=== PATIENT | male | born 1965 | race Hispanic/Latino ===

== ENCOUNTER 2018-03-12 12:46 | Inpatient (IN) | payer OTHER ==
[2018-03-12] MEDS ORDERED: FENTANYL CITR 100 MCG/2 ML ONE (15:15)
[2018-03-12 15:21] LABS: Absolute Lymphocytes (CBC) 0.9 K/uL (0.7-4.9); Absolute Monocytes 0.8 K/uL (0.1-1.3); Basophils % 0.8 % (0-1.3); Eosinophils % 0.3 % (0-4.4); Hematocrit 41.1 % (39.6-49.0); Lymphocytes % 10.3 % (15.3-44.8); MCH 27.9 pg (27.0-35.0); MCV 81.4 fL (80-100); MPV 8.6 fL (7.6-11.3); Monocytes % 9.6 % (3.3-12.3); RBC Red Blood Cell Count 5.05 M/uL (4.33-5.43)
[2018-03-12 15:41] LABS: ALT/SGPT 95 U/L (12-78); AST/SGOT 99 U/L (15-37); Albumin 3.1 g/dL (3.4-5.0); Alkaline Phosphatase 235 U/L (45-117); BUN Blood Urea Nitrogen 14 mg/dL (7-18); Bicarbonate 29 mmol/L (21-32); Bilirubin Direct 0.8 mg/dL (0-0.2); Bilirubin Total 1.3 mg/dL (0.2-1.0); Glucose Level 97 mg/dL (74-106); Lipase 2962 U/L (73-393); Protein, Total 8.7 g/dL (6.4-8.2); Sodium Level 131 mmol/L (136-145)
--- NOTE | 2018-03-12 15:50 | RAD REPORT ---
EXAM DESCRIPTION: CT - Stone Protocol - 03/12/2018 3:19 pm CLINICAL HISTORY: Abdominal pain. COMPARISON: March 01, 2018 TECHNIQUE: Computed axial tomography of the abdomen pelvis was obtained without oral or IV contrast. Lack of IV and oral contrast limits evaluation of solid organs, bowel, and vessels. Coronal reformat reza images were obtained and reviewed. All CT scans are performed using dose optimization technique as appropriate and may include automated exposure control or mA/KV adjustment according to patient size. FINDINGS: A renal calculus is not seen. An ureteral calculus is not noted. A bladder calculus is not present. Pancreatic and hepatic masses are unchanged. Lymphadenopathy is stable There is no evidence of diverticulitis. The appendix appears normal Small amount of ascites is present The wall of the proximal rectum appears thickened IMPRESSION: Negative for a genitourinary calculus No change in pancreatic and hepatic masses. Stable lymphadenopathy Wall of the proximal rectum appears thickened which may represent neoplasm or incomplete distention
--- NOTE | 2018-03-12 16:37 | ER ---
Nurse's Notes [facility] Name: Reji Pina Age: 52 yrs Sex: Male : 1965 Arrival Date: 03/12/2018 Time: 12:47 Bed 19 Private MD: John Raygoza E Diagnosis: Acute pancreatitis Presentation: 03/12 12:49 Presenting complaint: Patient states: Upper abdominal pain for 2 months with decreased aj appetite. Patient has been seen by GI and PCP for this issue. Reports tramadol is not controlling pain. Was DX with liver mass in [facility] ER recently but has not followed up. Transition of care: patient was not received from another setting of care. Onset of symptoms was December 2017. Risk Assessment: Do you want to hurt yourself or someone else? Patient reports no desire to harm self or others. Initial Sepsis Screen: Does the patient meet any 2 criteria? No. Patient's initial sepsis screen is negative. Does the patient have a suspected source of infection? No. Patient's initial sepsis screen is negative. Care prior to arrival: None. 12:49 Method Of Arrival: Wheelchair aj 12:49 Acuity: TY 3 aj Triage Assessment: 12:53 General: Appears in no apparent distress. comfortable, Behavior is calm, cooperative, aj appropriate for age. Pain: Complains of pain in right upper quadrant. Neuro: Level of Consciousness is awake, alert, obeys commands, Oriented to person, place, time, situation, Appropriate for age. Respiratory: Airway is patent Respiratory effort is even, unlabored, Respiratory pattern is regular, symmetrical. GI: Abdomen is flat, Reports upper abdominal pain. Derm: Skin is intact, is healthy with good turgor, Skin is pink, warm \T\ dry. normal. Historical: - Allergies: 12:53 NKDA; aj - Home Meds: 12:53 Tramadol Oral [Active]; Protonix Oral [Active]; Lactulose Oral [Active]; aj - PMHx: 12:53 Liver mass; aj - PSHx: 12:53 left hand surgery; aj - Immunization history:: Adult Immunizations up to date. - Social history:: Smoking status: Patient/guardian denies using tobacco, Patient uses alcohol, claims drinking about a 6 pack/day. street drugs, cocaine. - Ebola Screening: : Patient negative for fever greater than or equal to 101.5 degrees Fahrenheit, and additional compatible Ebola Virus Disease symptoms Patient denies exposure to infectious person Patient denies travel to an Ebola-affected area in the 21 days before illness onset No symptoms or risks identified at this time. Screenin:39 Abuse screen: Denies threats or abuse. Denies injuries from another. Nutritional bp screening: No deficits noted. Tuberculosis screening: No symptoms or risk factors identified. Fall Risk None identified. Assessment: 14:35 General: Appears in no apparent distress. comfortable, Behavior is cooperative, bp appropriate for age, anxious. Pain: Complains of pain in right upper quadrant. Neuro: Level of Consciousness is awake, alert, obeys commands, Oriented to person, place, time, situation, Appropriate for age. Cardiovascular: No deficits noted. Respiratory: Airway is patent Respiratory effort is even, unlabored, Respiratory pattern is regular, symmetrical. GI: Bowel sounds present X 4 quads. Abd is soft X 4 quads. : No signs and/or symptoms were reported regarding the genitourinary system. EENT: No deficits noted. Derm: No deficits noted. Musculoskeletal: Circulation, motion, and sensation intact. Range of motion: intact in all extremities. 15:12 Reassessment: PT TO CT WITH AS400 OPERATOR. bp 16:04 Reassessment: ALL CURRENT ORDERS COMPLETED, RE-EVAL PENDING. bp 17:00 Reassessment: U/S AT B/S, ADMIT IN PROCESS. bp Vital Signs: 12:53 BP 128 / 97; Pulse 109; Resp 20; Temp 98.1; Pulse Ox 98% on R/A; Weight 54.43 kg; aj Height 5 ft. 3 in. (160.02 cm); 14:39 BP 142 / 106; Pulse 100; Resp 16; Pulse Ox 100% ; bp 15:55 BP 151 / 115; Pulse 95; Resp 16; Pulse Ox 100% ; bp 16:03 BP 145 / 110; Pulse 95; Resp 16; Pulse Ox 100% ; bp 17:00 BP 146 / 102; Pulse 99; Resp 16; Pulse Ox 100% ; bp 12:53 Body Mass Index 21.26 (54.43 kg, 160.02 cm) aj ED Course: 12:47 Patient arrived in ED. mr 12:47 John Raygoza MD is Private Physician. mr 12:51 Triage completed. aj 12:53 Arm band placed on left wrist. Patient placed in waiting room, Patient notified of wait aj time. 14:33 Isaac Das, RN is Primary Nurse. bp 14:33 Brenden Hawk MD is Attending Physician. gs 14:39 Patient has correct armband on for positive identification. Placed in gown. Bed in low bp position. Call light in reach. Side rails up X2. 15:12 Inserted saline lock: 22 gauge in left forearm, using aseptic technique. Blood bp collected. 15:12 Initial lab(s) drawn, by me, sent to lab. Inserted saline lock: 22 gauge in left mh5 forearm, using aseptic technique. Blood collected. 15:13 Lipase Sent. 5 15:13 Hepatic Function Sent. 5 15:13 CBC with Diff Sent. 5 15:13 Basic Metabolic Panel Sent. 5 15:19 CT Stone Protocol In Process Unspecified. EDMS 15:19 CT completed. Patient tolerated procedure well. Patient moved back from CT. bq 16:34 Ross Kirkland MD is Hospitalizing Provider. gs 17:27 Ultrasound completed. Patient tolerated well. sg3 17:27 US Abdomen Limited In Process Unspecified. EDMS 17:38 No provider procedures requiring assistance completed. Patient admitted, IV remains in bp place. Administered Medications: 15:12 Drug: fentaNYL (PF) 50 mcg Route: IVP; Site: left forearm; bp 16:24 Follow up: Response: Pain is decreased bp Outcome: 16:36 Decision to Hospitalize by Provider. gs 17:37 Admitted to Med/surg accompanied by tech, via stretcher, room 221, with chart, Report bp called to ALEXIA ALCARAZ 17:37 Condition: stable 17:37 Instructed on the need for admit. 17:41 Patient left the ED. bp Signatures: Dispatcher [employer] EDMS Teresita Head RN RN aj Rivera, Mary Cammie White Kamini Bonner 5 Brenden Hawk MD MD Isaac Das, KIERAN RN Rupal Macias sg3 Corrections: (The following items were deleted from the chart) 12:57 12:49 Presenting complaint: Patient states: Upper abdominal pain for 2 months with aj decreased appetite. Patient has been seen by GI and PCP for this issue. Reports tramadol is not controlling pain aj 17:22 17:21 BP 146 / 102; Pulse 99bpm; Resp 16bpm; Pulse Ox 100%; bp bp
--- NOTE | 2018-03-12 16:37 | EDPHYS ---
Physician Documentation [facility] Name: Reji Pina Age: 52 yrs Sex: Male : 1965 Arrival Date: 03/12/2018 Time: 12:47 Bed 19 Private MD: John Raygoza E ED Physician Brenden Hwak HPI: 03/12 16:32 This 52 yrs old Male presents to ER via Wheelchair with complaints of gs Abdominal Pain. 16:32 The patient presents with abdominal pain that is diffuse. Onset: The symptoms/episode gs began/occurred 5 day(s) ago. The symptoms do not radiate. Associated signs and symptoms: Pertinent positives: nausea and vomiting. The symptoms are described as crampy, sharp. Modifying factors: The symptoms are alleviated by nothing, the symptoms are aggravated by food. Severity of pain: At its worst the pain was severe in the emergency department the pain is unchanged. The patient has experienced similar episodes in the past, a few times. Historical: - Allergies: 12:53 NKDA; aj - Home Meds: 12:53 Tramadol Oral [Active]; Protonix Oral [Active]; Lactulose Oral [Active]; aj - PMHx: 12:53 Liver mass; aj - PSHx: 12:53 left hand surgery; aj - Immunization history:: Adult Immunizations up to date. - Social history:: Smoking status: Patient/guardian denies using tobacco, Patient uses alcohol, claims drinking about a 6 pack/day. street drugs, cocaine. - Ebola Screening: : Patient negative for fever greater than or equal to 101.5 degrees Fahrenheit, and additional compatible Ebola Virus Disease symptoms Patient denies exposure to infectious person Patient denies travel to an Ebola-affected area in the 21 days before illness onset No symptoms or risks identified at this time. ROS: 16:32 All other systems are negative. gs Exam: 16:32 Head/Face: Normocephalic, atraumatic. Eyes: Pupils equal round and reactive to light, gs extra-ocular motions intact. Lids and lashes normal. Conjunctiva and sclera are non-icteric and not injected. Cornea within normal limits. Periorbital areas with no swelling, redness, or edema. ENT: Nares patent. No nasal discharge, no septal abnormalities noted. Tympanic membranes are normal and external auditory canals are clear. Oropharynx with no redness, swelling, or masses, exudates, or evidence of obstruction, uvula midline. Mucous membranes moist. Neck: Trachea midline, no thyromegaly or masses palpated, and no cervical lymphadenopathy. Supple, full range of motion without nuchal rigidity, or vertebral point tenderness. No Meningismus. Chest/axilla: Normal chest wall appearance and motion. Nontender with no deformity. No lesions are appreciated. Cardiovascular: Regular rate and rhythm with a normal S1 and S2. No gallops, murmurs, or rubs. Normal PMI, no JVD. No pulse deficits. Respiratory: Lungs have equal breath sounds bilaterally, clear to auscultation and percussion. No rales, rhonchi or wheezes noted. No increased work of breathing, no retractions or nasal flaring. Back: No spinal tenderness. No costovertebral tenderness. Full range of motion. Skin: Warm, dry with normal turgor. Normal color with no rashes, no lesions, and no evidence of cellulitis. MS/ Extremity: Pulses equal, no cyanosis. Neurovascular intact. Full, normal range of motion. Neuro: Awake and alert, GCS 15, oriented to person, place, time, and situation. Cranial nerves II-XII grossly intact. Motor strength 5/5 in all extremities. Sensory grossly intact. Cerebellar exam normal. Normal gait. 16:32 Constitutional: The patient appears alert, awake. 16:32 Constitutional: The patient appears uncomfortable. 16:32 Abdomen/GI: Palpation: moderate abdominal tenderness, in all quadrants, rebound tenderness, is not appreciated. Vital Signs: 12:53 BP 128 / 97; Pulse 109; Resp 20; Temp 98.1; Pulse Ox 98% on R/A; Weight 54.43 kg; aj Height 5 ft. 3 in. (160.02 cm); 14:39 BP 142 / 106; Pulse 100; Resp 16; Pulse Ox 100% ; bp 15:55 BP 151 / 115; Pulse 95; Resp 16; Pulse Ox 100% ; bp 16:03 BP 145 / 110; Pulse 95; Resp 16; Pulse Ox 100% ; bp 17:00 BP 146 / 102; Pulse 99; Resp 16; Pulse Ox 100% ; bp 12:53 Body Mass Index 21.26 (54.43 kg, 160.02 cm) aj MDM: 14:52 Patient medically screened. gs 16:32 Differential diagnosis: bowel obstruction, gastroesophageal reflux disease, gs non-specific abd pain, pancreatitis. Data reviewed: vital signs, nurses notes, lab test result(s), radiologic studies. Response to treatment: the patient's symptoms have markedly improved after treatment, and as a result, I will admit patient. 03/12 14:55 Order name: Basic Metabolic Panel; Complete Time: 16:00 03/12 14:55 Order name: CBC with Diff; Complete Time: 16:00 03/12 14:55 Order name: Hepatic Function; Complete Time: 16:00 03/12 14:55 Order name: Lipase; Complete Time: 16:00 03/12 16:11 Order name: Basic Metabolic Panel [facility] 03/12 16:11 Order name: Basic Metabolic Panel [facility] 03/12 14:55 Order name: CT Stone Protocol; Complete Time: 16:00 03/12 16:06 Order name: US Abdomen Limited; Complete Time: 18:02 03/12 16:11 Order name: CBC with Automated Diff [facility] 03/12 16:11 Order name: CBC with Automated Diff [facility] 03/12 16:11 Order name: Lipase [facility] 03/12 16:11 Order name: Lipase [facility] 03/12 16:11 Order name: Liver (Hepatic) Function [facility] 03/12 16:11 Order name: Liver (Hepatic) Function [facility] 03/12 14:55 Order name: IV Saline Lock; Complete Time: 15:11 03/12 14:55 Order name: Labs collected and sent; Complete Time: 15:11 03/12 16:11 Order name: CONS Pharmacy Consult [facility] 03/12 16:11 Order name: NPO [facility] Administered Medications: 15:12 Drug: fentaNYL (PF) 50 mcg Route: IVP; Site: left forearm; bp 16:24 Follow up: Response: Pain is decreased bp Disposition: 03/12/18 16:36 Hospitalization ordered by Ross Kirkland for Inpatient Admission. Preliminary diagnosis is Acute pancreatitis. - Bed requested for Telemetry/MedSurg (Inpatient). - Status is Inpatient Admission. bp - Condition is Stable. - Problem is an acute exacerbation. - Symptoms have improved. UTI on Admission? No Signatures: Dispatcher [employer] EDVA Teresita Head RN Brenden Cho MD MD gs Peltier, Brian, RN RN bp Botello, Elizabeth eb Corrections: (The following items were deleted from the chart) 17:13 16:36 Hospitalization Ordered by Ross Kirkland MD for Inpatient Admission. eb Preliminary diagnosis is Acute pancreatitis. Bed requested for Telemetry/MedSurg (Inpatient). Status is Inpatient Admission. Condition is Stable. Problem is an acute exacerbation. Symptoms have improved. UTI on Admission? No. 17:41 17:13 03/12/2018 16:36 Hospitalization Ordered by Ross Kirkland MD for Inpatient bp Admission. Preliminary diagnosis is Acute pancreatitis. Bed requested for Telemetry/MedSurg (Inpatient). Status is Inpatient Admission. Condition is Stable. Problem is an acute exacerbation. Symptoms have improved. UTI on Admission? No. eb
--- NOTE | 2018-03-12 17:54 | RAD REPORT ---
EXAM DESCRIPTION: US - Abdomen Exam Limited - 03/12/2018 5:28 pm CLINICAL HISTORY: Abdominal pain. COMPARISON: CT March 12, 2018 FINDINGS: A gallstone is not seen. Gallbladder wall is not thickened. The biliary tree is normal caliber. IMPRESSION: Unremarkable gallbladder ultrasound.
[2018-03-12] MEDS: D5 0.45 NS 1,000 ML IV SCH (18:16)
[2018-03-12] MEDS: MORPHINE 4 MG/ML SYR IV PRN ×2 (18:45→22:42)
[2018-03-12] MEDS: ENOXAPARIN 40 MG/0.4 ML SQ SCH (18:46)
[2018-03-12] MEDS ORDERED: INFLUENZA VACCINE (for 3y+) 0.5 ML DOSE IMVAC ONE (19:00)
[2018-03-12 19:28] VITALS: BMI 26.9
[2018-03-13] MEDS: MORPHINE 4 MG/ML SYR IV PRN ×5 (03:19→22:00)
[2018-03-13] MEDS: D5 0.45 NS 1,000 ML IV SCH (03:30)
[2018-03-13] MEDS ORDERED: PROMETHAZINE 25 MG TABLET PO PRN (04:39)
--- NOTE | 2018-03-13 04:40 | P.HP ---
Certification for Inpatient Patient admitted to: Inpatient With expected LOS: >2 Midnights Patient will require the following post-hospital care: None Practitioner: I am a practitioner with admitting privileges, knowledge of patient current condition, hospital course, and medical plan of care. Services: Services provided to patient in accordance with Admission requirements found in Title 42 Section 412.3 of the Code of Federal Regulations Patient History Date of Service: 03/12/18 Reason for admission: Acute pancreatitis History of Present Illness: Patient is a 52-year-old gentleman who is cachectic and disheveled who presents to the hospital with confusion. Patient was found have acute pancreatitis. He has no history of gallstones. He also does not have any prior history of cardiac disease. Patient has been told he has pancreatitis and he stoppeed drinking in May. However, patient admits to having frequent flare-ups for his acute on chronic pancreatitis. Patient be admitted to the hospital for further treatment at this time. Allergies No Known Drug All Allergy (Uncoded 11/19/16 21:41) Unknown Home Medications: Amoxicillin 2 cap PO BID 03/12/18 Clarithromycin [Biaxin] 500 mg PO BID 03/12/18 Ferrous Sulfate 324 mg PO DAILY 03/12/18 Lactulose 15 ml PO BID 03/12/18 Lansoprazole 30 mg PO BID 03/12/18 Promethazine HCl 25 mg PO Q6H PRN 03/12/18 Tramadol HCl [Ultram] 50 mg PO BID 03/12/18 - Past Medical/Surgical History Has patient received pneumonia vaccine in the past: No Diabetic: No -: Pancreatitis Past Surgical History: Patient denies surgical history - Family History Mother Medical History: Diabetes Father Medical History: Heart disease, Diabetes - Social History Smoking Status: Former smoker Alcohol use: Yes CD- Drugs: Yes Caffeine use: Yes Place of Residence: Home Review of Systems 10-point ROS is otherwise unremarkable Physical Examination - Vital Signs Temperature: 97.2 F Blood Pressure: 136/87 Pulse: 88 Respirations: 16 Pulse Ox (%): 99 - Physical Exam General: Alert, In no apparent distress, Oriented x3 HEENT: Atraumatic, PERRLA, Mucous membr. moist/pink, EOMI, Sclerae nonicteric Neck: Supple, 2+ carotid pulse no bruit, No LAD, Without JVD or thyroid abnormality Respiratory: Clear to auscultation bilaterally, Normal air movement Cardiovascular: Regular rate/rhythm, Normal S1 S2, No murmurs Gastrointestinal: Normal bowel sounds, Soft and benign, No ascites, No rebound, No guarding, Distended, Tenderness Musculoskeletal: No clubbing, No swelling, No tenderness Integumentary: No rashes Neurological: Normal gait, Normal speech, Normal strength at 5/5 x4 extr, Normal tone, Sensation intact, Cranial nerves 3-12 intact, Normal affect Lymphatics: No axilla or inguinal lymphadenopathy - Studies Laboratory Data (last 24 hrs) 03/12/18 13:05: WBC 8.8, Hgb 14.1, Hct 41.1, Plt Count 442 H 03/12/18 13:05: Sodium 131 L, Potassium 4.0, BUN 14, Creatinine 0.80, Glucose 97 , Total Bilirubin 1.3 H, AST 99 H, ALT 95 H, Alkaline Phosphatase 235 H, Lipase 2962 H Assessment & Plan - Problems (Diagnosis) (1) Acute on chronic pancreatitis Current Visit: Yes Status: Acute (2) History of alcohol abuse Current Visit: Yes Status: Acute (3) Generalized weakness Current Visit: Yes Status: Acute - Plan Plan: 1. Aggressive IV hydration 2. Pain control 3. NPO 4. Continue with IV pain medication 5. Start clear liquids in the morning 6. Advanced diet as tolerated 7. GI and DVT prophylaxis Discharge Plan: Home Plan to discharge in: Greater than 2 days - Advance Directives Does patient have a Living Will: No Does patient have a Durable POA for Healthcare: No - Code Status/Comfort Care Code Status Assessed: Yes Code Status: Full Code Critical Care: No Time Spent Managing PTS Care (In Minutes): 50
[2018-03-13] MEDS ORDERED: D5 0.45 NS 1,000 ML IV SCH (05:00)
[2018-03-13 06:30] LABS: Absolute Lymphocytes (CBC) 0.8 K/uL (0.7-4.9); Absolute Monocytes 0.9 K/uL (0.1-1.3); Absolute Neutrophil 6.6 K/uL (1.8-8.0); Basophils % 0.5 % (0-1.3); Eosinophils % 0.8 % (0-4.4); Hematocrit 37.1 % (39.6-49.0); Lymphocytes % 9.6 % (15.3-44.8); MCH 28.1 pg (27.0-35.0); MCV 80.6 fL (80-100); MPV 8.8 fL (7.6-11.3); Monocytes % 10.8 % (3.3-12.3); RBC Red Blood Cell Count 4.61 M/uL (4.33-5.43)
[2018-03-13 06:39] LABS: ALT/SGPT 73 U/L (12-78); AST/SGOT 70 U/L (15-37); Albumin 2.6 g/dL (3.4-5.0); Alkaline Phosphatase 183 U/L (45-117); BUN Blood Urea Nitrogen 11 mg/dL (7-18); Bicarbonate 30 mmol/L (21-32); Bilirubin Direct 0.8 mg/dL (0-0.2); Bilirubin Total 1.2 mg/dL (0.2-1.0); Glucose Level 114 mg/dL (74-106); Lipase 1328 U/L (73-393); Potassium 4.4 mmol/L (3.5-5.1); Protein, Total 7.4 g/dL (6.4-8.2); Sodium Level 130 mmol/L (136-145)
[2018-03-13] MEDS: PANTOPRAZOLE 40MG TABLET PO SCH ×3 (07:30→17:34)
[2018-03-13 07:34] LABS: Urine Appearance CLEAR; Urine Blood NEGATIVE (NEG); Urine Glucose NEGATIVE (NEG); Urine Protein 1+ (NEG); Urine Specific Gravity 1.025 (1.005-1.030); Urine pH 5.5 (5.0-7.0)
[2018-03-13 08:00] LABS: Urine Bilirubin NEGATIVE (NEG); Urine Color DK YELLOW; Urine Microscopic Reflex ORDER UMIC
[2018-03-13 08:47] LABS: Urine Bacteria NONE SEEN /HPF (NONE SEEN); Urine Culture Reflex Order NOT NEEDED; Urine Mucus 1+ /HPF (NONE SEEN); Urine RBC NONE SEEN /HPF (NONE SEEN)
[2018-03-13] MEDS: FERROUS SULFATE 325 MG TAB PO SCH ×2 (08:49→10:09)
[2018-03-13] MEDS: LACTULOSE 20 GM/30 ML UCUP PO SCH ×3 (08:49→20:50)
[2018-03-13] MEDS ORDERED: LANSOPRAZOLE 30 MG PO SCH (09:00)
[2018-03-13] MEDS: TRAMADOL HCL 50 MG TAB PO SCH ×3 (09:00→20:49)
[2018-03-13 11:03] LABS: Ferritin 1207.7 ng/mL (26-388)
[2018-03-13] MEDS: NA CHLORIDE 0.9% 1,000 ML IV SCH ×2 (12:24→20:50)
--- NOTE | 2018-03-13 15:19 | PN ---
Subjective: Currently, the patient lying in bed. He looks uncomfortable. He continued to have abdo michael pain. There was no nausea or vomiting overnight. He is not eating. No fever or chills. Review of Systems: Otherwise as below. Objective: Vital Signs: Currently; blood pressure 101/72, respiratory rate 18, pulse 86, temperatur e 97.3. The patient reported his pain as 5/10. General: He is alert and oriented x3. Looks in mild distress. HEENT: Atraumatic, normocephalic. PERRLA. Oral mucosa is dry. Neck: Supple. No JVD. No bruits. Chest: Clear to auscultation. Good air entry. Heart: Regular rate and rhythm. S1, S2 normal. No gallop. Abdomen: Soft, with diffuse tenderness to palpation. There is no guarding or rebound. Positive bow el sounds. Extremities: No clubbing, cyanosis, or edema. No calf tenderness. Neurologic: Grossly intact. Laboratory Data: Today showed CBC within normal limits except for hemoglobin of 12.9, platelets of 3 40. Chemistry within normal limits except for sodium 130, chloride 96, glucose 140, bilirubin 1.2, d irect 0.8, AST of 70. Lipase down from 2900 to 1328. Assessment And Plan: 1.Acute pancreatitis, etiology? I will check his triglyceride. MRCP ordered to rule out gallstones . The patient doing well on p.o. His lipase is going down. Continue IV fluid, pain control. 2.Hyponatremia. The patient is on D5 half-normal saline. I switched it over to normal saline at th is point. Hopefully that will improve his hyponatremia. 3.Microcytic anemia, mild. We will check iron profile. The patient already on iron tablet. 4.We will start the patient on deep veinous thrombosis prophylaxis with Lovenox. MERVIN/GILMA Voice ID: [id number] Report ID: [id number]
[2018-03-13] MEDS: ENOXAPARIN 40 MG/0.4 ML SQ SCH (18:16)
[2018-03-13] MEDS: ONDANSETRON 4 MG/2 ML VIAL IV PRN (21:59)
[2018-03-14] MEDS: NA CHLORIDE 0.9% 1,000 ML IV SCH ×3 (03:00→18:18)
[2018-03-14] MEDS: PANTOPRAZOLE 40MG TABLET PO SCH ×2 (05:24→17:00)
[2018-03-14] MEDS: MORPHINE 4 MG/ML SYR IV PRN ×4 (05:24→18:17)
[2018-03-14] MEDS: FERROUS SULFATE 325 MG TAB PO SCH (09:00)
[2018-03-14] MEDS: TRAMADOL HCL 50 MG TAB PO SCH ×2 (09:00→20:23)
[2018-03-14] MEDS: LACTULOSE 20 GM/30 ML UCUP PO SCH ×2 (09:00→20:23)
[2018-03-14] MEDS ORDERED: INFLUENZA VACCINE (for 3y+) 0.5 ML DOSE IMVAC ONE (10:00)
--- NOTE | 2018-03-14 12:23 | RAD REPORT ---
EXAM DESCRIPTION: MRI - Cholangiogram - 03/14/2018 12:07 pm CLINICAL HISTORY: Acute pancreatitis COMPARISON: Abdomen Exam Limited dated 03/12/2018; Stone Protocol dated 03/12/2018; Abdomen W/Wo Con trast dated 03/01/2018 FINDINGS: Three-dimensional MRCP was performed using maximum intensity projection reconstruction on the same work station. Large pancreatic mass is noted in the region of the body of the pancreas, unchanged from recent CT im aging. The mass is seen to encase multiple visceral arteries. Numerous liver masses are present. Gaby pancreatic lymphadenopathy is again seen. Mild perihepatic and perisplenic fluid is present. The gallbladder appears distended without stones. Common bile duct is normal caliber without evidence of stone. IMPRESSION : No gallbladder or common bile duct pathologic dilatation. Findings related to pancreatic neoplasia again noted with evidence of hepatic metastases. Mild free f luid surrounding the liver and spleen is seen. Peripancreatic lymphadenopathy is present.
--- NOTE | 2018-03-14 15:09 | P.PN ---
Subjective Date of Service: 03/14/18 Chief Complaint: Acute pancreatitis Patient seen and examined at bedside. Sister and father at bedside. Patient in moderate distress due to pain. Also complaining of nausea, no vomiting. Unable to tolerate oral diet. Review of Systems As noted Physical Examination - Vital Signs Temperature: 98.5 F Blood Pressure: 118/74 Pulse: 102 Respirations: 18 Pulse Ox (%): 98 - Physical Exam General: Alert, In no apparent distress, Oriented x3, Other (History of learning disability though alert oriented. Able to answer all questions appropriately) HEENT: Atraumatic, PERRLA, EOMI Neck: Supple, JVD not distended Respiratory: Clear to auscultation bilaterally, Normal air movement Cardiovascular: Normal S1 S2, Irregular heart rate/rhythm (Tachycardic) Gastrointestinal: Tenderness (Diffused tenderness even on light palpation), Guarding Musculoskeletal: No tenderness Integumentary: No rashes Neurological: Normal speech, Normal tone, Normal affect Lymphatics: No axilla or inguinal lymphadenopathy - Studies Medications List Reviewed: Yes Assessment And Plan - Plan 52-year-old male admitted for acute pancreatitis. - acute pancreatitis: - pancreatic cancer, newly diagnosed Patient with a history of learning disability, sister at bedside. Discussed with patient and sister. Per sister, he has been having symptoms of weight loss , abdominal pain/pancreatitis for the past 1-2 months. He is a former alcohol drinker, stopped 9 months ago. Patient was unable to follow up outpatient GI you due to insurance/financial reasons. Patient and sister unsure of the diagnosis and would like to know the reason for her symptoms. Abdominal ultrasound negative for gallstones and an MRCP was ordered. MRCP positive for pancreatic cancer, with mets to liver. GI consulted. CEA labs ordered. Discussed in detail with patient and family regarding diagnosis of pancreatic cancer and prognosis. Patient would like to do everything possible for treatment. Will consider getting oncology and general surgery consult. trend lipase, continue IV fluids and pain control - hypernatremia: Monitor with labs, continue IV D5 half-normal saline - anemia: Iron studies with high ferritin, low iron. This is likely secondary to anemia of chronic disease/inflammatory, likely secondary to pancreatic cancer. Will continue to monitor. DVT prophylaxis: Lovenox Diet: NPO
[2018-03-14 16:11] LABS: Absolute Lymphocytes (CBC) 0.7 K/uL (0.7-4.9); Absolute Monocytes 0.8 K/uL (0.1-1.3); Basophils % 0.5 % (0-1.3); Eosinophils % 0.7 % (0-4.4); Hematocrit 35.9 % (39.6-49.0); Lymphocytes % 9.1 % (15.3-44.8); MCH 27.4 pg (27.0-35.0); MCV 83.2 fL (80-100); Monocytes % 10.4 % (3.3-12.3); RBC Red Blood Cell Count 4.32 M/uL (4.33-5.43)
[2018-03-14 16:27] LABS: ALT/SGPT 66 U/L (12-78); AST/SGOT 70 U/L (15-37); Albumin 2.4 g/dL (3.4-5.0); Alkaline Phosphatase 176 U/L (45-117); BUN Blood Urea Nitrogen 8 mg/dL (7-18); Bicarbonate 27 mmol/L (21-32); Bilirubin Total 1.3 mg/dL (0.2-1.0); Glucose Level 78 mg/dL (74-106); Lipase 959 U/L (73-393); Potassium 4.7 mmol/L (3.5-5.1); Protein, Total 6.9 g/dL (6.4-8.2); Sodium Level 136 mmol/L (136-145)
[2018-03-14] MEDS: ENOXAPARIN 40 MG/0.4 ML SQ SCH (17:00)
[2018-03-15] MEDS: NA CHLORIDE 0.9% 1,000 ML IV SCH ×3 (02:31→18:11)
[2018-03-15] MEDS: MORPHINE 4 MG/ML SYR IV PRN ×4 (02:59→20:49)
[2018-03-15 06:04] LABS: Absolute Lymphocytes (CBC) 0.5 K/uL (0.7-4.9); Absolute Monocytes 0.7 K/uL (0.1-1.3); Absolute Neutrophil 5.4 K/uL (1.8-8.0); Basophils % 0.6 % (0-1.3); Eosinophils % 1.1 % (0-4.4); Hematocrit 34.8 % (39.6-49.0); Lymphocytes % 7.2 % (15.3-44.8); MCH 27.6 pg (27.0-35.0); MCV 82.7 fL (80-100); MPV 9.2 fL (7.6-11.3); Monocytes % 10.5 % (3.3-12.3)
[2018-03-15 06:17] LABS: ALT/SGPT 62 U/L (12-78); AST/SGOT 74 U/L (15-37); Albumin 2.3 g/dL (3.4-5.0); Alkaline Phosphatase 173 U/L (45-117); BUN Blood Urea Nitrogen 8 mg/dL (7-18); Bicarbonate 25 mmol/L (21-32); Bilirubin Total 1.4 mg/dL (0.2-1.0); Glucose Level 84 mg/dL (74-106); Lipase 875 U/L (73-393); Potassium 4.6 mmol/L (3.5-5.1); Protein, Total 6.9 g/dL (6.4-8.2); Sodium Level 138 mmol/L (136-145)
[2018-03-15] MEDS: LACTULOSE 20 GM/30 ML UCUP PO SCH ×2 (08:17→20:13)
[2018-03-15] MEDS: PANTOPRAZOLE 40MG TABLET PO SCH ×2 (08:18→16:04)
[2018-03-15] MEDS: TRAMADOL HCL 50 MG TAB PO SCH ×2 (08:18→20:13)
[2018-03-15] MEDS: FERROUS SULFATE 325 MG TAB PO SCH (08:18)
[2018-03-15] MEDS: ONDANSETRON 4 MG/2 ML VIAL IV PRN ×2 (11:54→20:49)
--- NOTE | 2018-03-15 13:48 | P.PN ---
Subjective Date of Service: 03/15/18 Chief Complaint: Acute pancreatitis Patient seen and examined at bedside. No family at bedside. Patient in moderate distress due to pain. Also complaining of nausea, no vomiting. Unable to tolerate oral diet. Review of Systems As noted above Physical Examination - Vital Signs Temperature: 98 F Blood Pressure: 127/75 Pulse: 96 Respirations: 20 Pulse Ox (%): 94 - Physical Exam General: Alert, In no apparent distress HEENT: Atraumatic, PERRLA, EOMI Neck: Supple, JVD not distended Respiratory: Clear to auscultation bilaterally, Normal air movement Cardiovascular: Regular rate/rhythm, Normal S1 S2 Gastrointestinal: Normal bowel sounds, Tenderness (Mild, diffuse) Musculoskeletal: No tenderness Integumentary: No rashes Neurological: Normal speech, Normal tone, Normal affect Lymphatics: No axilla or inguinal lymphadenopathy - Studies Medications List Reviewed: Yes Assessment And Plan - Plan 52-year-old male admitted for acute pancreatitis. - acute pancreatitis: - pancreatic cancer, newly diagnosed Patient with a history of learning disability, sister at bedside. Discussed with patient and sister. Per sister, he has been having symptoms of weight loss , abdominal pain/pancreatitis for the past 1-2 months. He is a former alcohol drinker, stopped 9 months ago. Patient was unable to follow up outpatient GI you due to insurance/financial reasons. Patient and sister unsure of the diagnosis and would like to know the reason for her symptoms. Abdominal ultrasound negative for gallstones and an MRCP was ordered. MRCP positive for pancreatic cancer, with mets to liver. GI consulted. CEA labs ordered. Discussed in detail with patient and family regarding diagnosis of pancreatic cancer and prognosis. Patient would like to do everything possible for treatment. Will consider getting oncology and general surgery consult. trend lipase, continue IV fluids and pain control - hypernatremia: Monitor with labs, continue IV D5 half-normal saline - anemia: Iron studies with high ferritin, low iron. This is likely secondary to anemia of chronic disease/inflammatory, likely secondary to pancreatic cancer. Will continue to monitor. DVT prophylaxis: Lovenox Diet: NPO
[2018-03-15] MEDS: ENOXAPARIN 40 MG/0.4 ML SQ SCH (17:52)
[2018-03-16] MEDS: MORPHINE 4 MG/ML SYR IV PRN ×5 (01:28→20:41)
[2018-03-16] MEDS: NA CHLORIDE 0.9% 1,000 ML IV SCH ×3 (01:31→17:15)
[2018-03-16] MEDS: ONDANSETRON 4 MG/2 ML VIAL IV PRN (04:11)
[2018-03-16 07:01] LABS: ALT/SGPT 65 U/L (12-78); AST/SGOT 82 U/L (15-37); Albumin 2.3 g/dL (3.4-5.0); Alkaline Phosphatase 191 U/L (45-117); BUN Blood Urea Nitrogen 5 mg/dL (7-18); Bicarbonate 25 mmol/L (21-32); Bilirubin Total 1.2 mg/dL (0.2-1.0); Glucose Level 90 mg/dL (74-106); Lipase 679 U/L (73-393); Potassium 4.3 mmol/L (3.5-5.1); Protein, Total 6.7 g/dL (6.4-8.2); Sodium Level 136 mmol/L (136-145)
[2018-03-16 07:27] LABS: Absolute Lymphocytes (CBC) 0.5 K/uL (0.7-4.9); Absolute Monocytes 0.7 K/uL (0.1-1.3); Absolute Neutrophil 4.7 K/uL (1.8-8.0); Basophils % 0.7 % (0-1.3); Eosinophils % 1.5 % (0-4.4); Hematocrit 33.9 % (39.6-49.0); Lymphocytes % 8.3 % (15.3-44.8); MCH 27.6 pg (27.0-35.0); MCV 82.5 fL (80-100); MPV 8.8 fL (7.6-11.3); Monocytes % 12.1 % (3.3-12.3)
[2018-03-16] MEDS: LACTULOSE 20 GM/30 ML UCUP PO SCH ×3 (08:35→20:16)
[2018-03-16] MEDS: TRAMADOL HCL 50 MG TAB PO SCH ×2 (08:35→20:14)
[2018-03-16] MEDS: FERROUS SULFATE 325 MG TAB PO SCH (08:35)
[2018-03-16] MEDS: PANTOPRAZOLE 40MG TABLET PO SCH ×2 (08:35→16:30)
--- NOTE | 2018-03-16 13:18 | P.PN ---
Subjective Date of Service: 03/16/18 Chief Complaint: Acute pancreatitis Patient seen and examined at bedside. Sister at bedside. Patient in moderate distress due to pain. Also complaining of decreased appetite, nausea and vomiting. Unable to tolerate oral diet. Review of Systems As noted above Physical Examination - Vital Signs Temperature: 97.6 F Blood Pressure: 150/96 Pulse: 94 Respirations: 20 Pulse Ox (%): 97 - Physical Exam General: Alert, In no apparent distress, Moderate distress (Due to pain) HEENT: Atraumatic, PERRLA, EOMI Neck: Supple, JVD not distended Respiratory: Clear to auscultation bilaterally, Normal air movement Cardiovascular: Regular rate/rhythm, Normal S1 S2 Gastrointestinal: Normal bowel sounds, Tenderness (Diffuse) Musculoskeletal: No tenderness Integumentary: No rashes Neurological: Normal speech, Normal tone, Normal affect - Studies Medications List Reviewed: Yes Assessment And Plan - Plan 52-year-old male admitted for acute pancreatitis. - acute pancreatitis: - pancreatic cancer, noted on MRCP Patient with a history of learning disability, sister at bedside. Discussed with patient and sister. Per sister, he has been having symptoms of weight loss , abdominal pain/pancreatitis for the past 1-2 months. He is a former alcohol drinker, stopped 9 months ago. Patient was unable to follow up outpatient GI you due to insurance/financial reasons. Patient and sister unsure of the diagnosis and would like to know the reason for her symptoms. Abdominal ultrasound negative for gallstones and an MRCP was ordered. MRCP positive for pancreatic neoplasia with mets to liver. GI consulted. CEA labs ordered, pending. CT guided Biopsy ordered, pending. Discussed in detail with patient and family regarding/if diagnosis of pancreatic cancer and prognosis. Patient/family would like to do everything possible for treatment. oncology consulted. Will consider general surgery consult. continue IV fluids and pain control Megace ordered for appetite stimulant - hypernatremia: Resolved. continue IV D5 half-normal saline - anemia: Iron studies with high ferritin, low iron. This is likely secondary to anemia of chronic disease/inflammatory, likely secondary to pancreatic cancer. Will continue to monitor. Continue p.o. iron DVT prophylaxis: Lovenox Diet: On clear liquid diet, advance as tolerated.
[2018-03-16] MEDS: ENOXAPARIN 40 MG/0.4 ML SQ SCH (17:15)
[2018-03-16] MEDS: predniSONE 10 MG TAB PO SCH (20:14)
[2018-03-17] MEDS: NA CHLORIDE 0.9% 1,000 ML IV SCH ×2 (00:17→08:50)
[2018-03-17] MEDS: MORPHINE 4 MG/ML SYR IV PRN ×4 (00:18→16:28)
[2018-03-17 06:11] LABS: Absolute Lymphocytes (CBC) 0.4 K/uL (0.7-4.9); Absolute Monocytes 0.4 K/uL (0.1-1.3); Absolute Neutrophil 5.5 K/uL (1.8-8.0); Basophils % 0.4 % (0-1.3); Eosinophils % 0.1 % (0-4.4); Hematocrit 37.3 % (39.6-49.0); Lymphocytes % 6.2 % (15.3-44.8); MCH 28.9 pg (27.0-35.0); MCV 82.3 fL (80-100); MPV 8.7 fL (7.6-11.3); Monocytes % 7.1 % (3.3-12.3); RBC Red Blood Cell Count 4.53 M/uL (4.33-5.43)
[2018-03-17 06:37] LABS: ALT/SGPT 73 U/L (12-78); AST/SGOT 90 U/L (15-37); Albumin 2.4 g/dL (3.4-5.0); Alkaline Phosphatase 222 U/L (45-117); BUN Blood Urea Nitrogen 4 mg/dL (7-18); Bicarbonate 27 mmol/L (21-32); Bilirubin Total 1.3 mg/dL (0.2-1.0); Glucose Level 92 mg/dL (74-106); Protein, Total 7.1 g/dL (6.4-8.2); Sodium Level 133 mmol/L (136-145)
[2018-03-17 08:45] LABS: Protime INR 1.43
[2018-03-17] MEDS: LACTULOSE 20 GM/30 ML UCUP PO SCH ×2 (08:48→08:59)
[2018-03-17] MEDS: TRAMADOL HCL 50 MG TAB PO SCH (08:49)
[2018-03-17] MEDS: PANTOPRAZOLE 40MG TABLET PO SCH (08:49)
[2018-03-17] MEDS: FERROUS SULFATE 325 MG TAB PO SCH (08:49)
[2018-03-17] MEDS: predniSONE 10 MG TAB PO SCH (08:50)
[2018-03-17] MEDS ORDERED: MEGESTROL 400 MG/10 ML UCUP PO SCH (09:00)
--- NOTE | 2018-03-17 10:11 | P.PN ---
Subjective Date of Service: 03/17/18 Primary Care Provider: None Chief Complaint: Acute pancreatitis Subjective: Other (Abdominal pain improved. No significant nausea vomiting this morning. Patient able to tolerate current diet.) Physical Examination - Vital Signs Temperature: 97.5 F Blood Pressure: 147/90 Pulse: 88 Respirations: 20 Pulse Ox (%): 98 - Physical Exam General: Alert, In no apparent distress, Cooperative, Cachectic HEENT: Atraumatic Neck: Supple Respiratory: Clear to auscultation bilaterally, Normal air movement Cardiovascular: Normal pulses, Regular rate/rhythm Gastrointestinal: Normal bowel sounds, Soft and benign, Non-distended, No masses , No rebound, No guarding, Tenderness (Mild pain to the epigastric region) Musculoskeletal: No erythema, No tenderness, No warmth Integumentary: No erythema, No warmth, No cyanosis Neurological: Normal speech, Normal strength at 5/5 x4 extr, Normal tone, Normal affect Other Physical/Emotional Findings: CT scan done early this month: FINDINGS: A 3.7 cm mass is present within the pancreatic body. Thrombus is present within the splenic vein. Several peripancreatic lymph nodes are present. The liver has a diminished attenuation consistent with fatty infiltration. There are multiple hepatic lesions involving right and left lobes. The lesions vary in size from a few mm to several cm. The spleen, adrenals and kidneys appear unremarkable. The appendix is normal. No ascites is noted. IMPRESSION: 1. A 3.7 cm pancreatic mass likely representing neoplasm. 2. Peripancreatic lymphadenopathy. 3. Hepatic lesions likely indicating metastatic disease. 4. Splenic vein thrombus. - Studies Medications List Reviewed: Yes Assessment & Plan Discharge Plan: Transfer Plan to discharge in: 24 Hours Physician Review Additional Text: Impression: Epigastric pain, weight loss, nausea and vomiting secondary to acute on chronic pancreatitis with history of alcohol use complicated with CT findings of 3.7 cm pancreatic mass likely neoplastic with peripancreatic lymphadenopathy and hepatic lesions likely metastatic disease. GERD Anemia likely of chronic disease Splenic vein thrombus Plan: Epigastric pain, weight loss, nausea and vomiting secondary to acute on chronic pancreatitis with history of alcohol use complicated with CT findings of 3.7 cm pancreatic mass likely neoplastic with peripancreatic lymphadenopathy and hepatic lesions likely metastatic disease: Case discussed with Oncology and Radiology. Patient requires biopsy to determine if mass is cancerous in nature. Radiology not able to do liver biopsy safely. Radiology recommends transfer to higher level of care center for endoscopic ultrasound biopsy with ERCP to further evaluate. Case discussed with patient and family. Patient agrees. Will arrange for transfer. Abdominal pain improved. Will continue with current diet-full liquid. Will monitor nausea and vomiting. GERD: Will continue with PPI. Anemia likely of chronic disease: Hemoglobin stable. Will monitor closely. Splenic vein thrombus: Will provide DVT prophylaxis. Time Spent Managing Pts Care (In Minutes): 55
--- NOTE | 2018-03-17 14:28 | P.DS ---
Admission Date: 03/12/18 Discharge Date: 03/17/18 Primary Care Provider: None Disposition: TRANSFER TO [facility] Discharge Condition: GOOD Reason for Admission: Acute pancreatitis Consultations: GI-Dr. Luu Oncology-Dr. Eid Procedures: CT scan: CLINICAL HISTORY: Abdominal pain/weight. COMPARISON: None. TECHNIQUE: Un-enhanced enhanced computed axial tomography of the abdomen was obtained. 100 mL Isovue-300 was administered intravenously. Oral contrast was given. All CT scans are performed using dose optimization technique as appropriate and may include automated exposure control or mA/KV adjustment according to patient size. FINDINGS: A 3.7 cm mass is present within the pancreatic body. Thrombus is present within the splenic vein. Several peripancreatic lymph nodes are present. The liver has a diminished attenuation consistent with fatty infiltration. There are multiple hepatic lesions involving right and left lobes. The lesions vary in size from a few mm to several cm. The spleen, adrenals and kidneys appear unremarkable. The appendix is normal. No ascites is noted. IMPRESSION: 1. A 3.7 cm pancreatic mass likely representing neoplasm. 2. Peripancreatic lymphadenopathy. 3. Hepatic lesions likely indicating metastatic disease. 4. Splenic vein thrombus. MRCP: COMPARISON: Abdomen Exam Limited dated 03/12/2018; Stone Protocol dated 2017; Abdomen W/Wo Contrast dated 03/01/2018 FINDINGS: Three-dimensional MRCP was performed using maximum intensity projection reconstruction on the same work station. Large pancreatic mass is noted in the region of the body of the pancreas, unchanged from recent CT imaging. The mass is seen to encase multiple visceral arteries. Numerous liver masses are present. Peripancreatic lymphadenopathy is again seen. Mild perihepatic and perisplenic fluid is present. The gallbladder appears distended without stones. Common bile duct is normal caliber without evidence of stone. IMPRESSION : No gallbladder or common bile duct pathologic dilatation. Findings related to pancreatic neoplasia again noted with evidence of hepatic metastases. Mild free fluid surrounding the liver and spleen is seen. Peripancreatic lymphadenopathy is present. Abdominal ultrasound: COMPARISON: CT March 12, 2018 FINDINGS: A gallstone is not seen. Gallbladder wall is not thickened. The biliary tree is normal caliber. IMPRESSION: Unremarkable gallbladder ultrasound. Medical problem list: Epigastric pain, weight loss, nausea and vomiting secondary to acute on chronic pancreatitis with history of alcohol use complicated with CT findings of 3.7 cm pancreatic mass likely neoplastic with peripancreatic lymphadenopathy and hepatic lesions likely metastatic disease. GERD Anemia likely of chronic disease Splenic vein thrombus Malnutrition, moderate Hypertension Brief History of Present Illness: 52-year-old male presented to the ER with weight loss, nausea and vomiting, and epigastric pain. Patient had recent CT scan by GI showing pancreatic mass. Patient was admitted for further evaluation. Hospital Course: Patient presented with epigastric pain, weight loss, nausea and vomiting. Patient found to have acute on chronic pancreatitis with history of alcohol use complicated with CT findings of 3.7 cm pancreatic mass likely neoplastic with maryann pancreatic lymphadenopathy and hepatic lesions likely metastatic disease. Patient seen and evaluated by oncology and GI. CT guided biopsy could not be performed during his stay. Recommendation was to transfer patient to higher level of care center for endoscopy ultrasound biopsy with ERCP. Case discussed at length with transfer facility. Facility agrees with transfer. Patient be transferred for further evaluation and possible treatment. Patient likely has underlying GERD. Will patient will need to continue with Protonix 40 mg 1 pill once daily. Patient found to have elevated blood pressure. Patient likely with hypertension. Patient was started on carvedilol 3.125 mg 1 pill twice daily. Patient may continue with this. Further adjustment can be done at the hospital facility Patient with anemia likely of chronic disease. Will continue to monitor closely. 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 This can be further monitored and address at the transfer facility. Patient with moderate malnutrition likely from pancreatic mass. This will need to be further addressed by dietary. Vital Signs/Physical Exam: Temp Pulse Resp BP Pulse Ox 97.5 F 88 20 147/90 H 98 03/17/18 10:11 03/17/18 10:11 03/17/18 10:11 03/17/18 10:11 03/17/18 10:11 General: Alert, In no apparent distress, Oriented x3, Cooperative, Cachectic HEENT: Atraumatic Neck: Supple Respiratory: Clear to auscultation bilaterally, Normal air movement Cardiovascular: Normal pulses, Regular rate/rhythm Gastrointestinal: Normal bowel sounds, No masses, No rebound, No guarding, Tenderness (Mild pain to the epigastric region) Musculoskeletal: No erythema, No tenderness, No warmth Integumentary: No tenderness/swelling, No erythema, No warmth, No cyanosis Neurological: Normal speech, Normal strength at 5/5 x4 extr, Normal tone, Normal affect Laboratory Data at Discharge: WBC 6.3 K/uL (4.3-10.9) 03/17/18 05:12 Hgb 13.1 g/dL (13.6-17.9) L 03/17/18 05:12 Hct 37.3 % (39.6-49.0) L 03/17/18 05:12 Plt Count 313 K/uL (152-406) 03/17/18 05:12 PT 16.9 SECONDS (9.5-12.5) H 03/17/18 08:25 INR 1.43 03/17/18 08:25 APTT 30.8 SECONDS (24.3-36.9) 03/17/18 08:25 Sodium 133 mmol/L (136-145) L 03/17/18 05:12 Potassium 5.0 mmol/L (3.5-5.1) 03/17/18 05:12 BUN 4 mg/dL (7-18) L 03/17/18 05:12 Creatinine 0.40 mg/dL (0.55-1.3) L 03/17/18 05:12 Glucose 92 mg/dL (74-106) 03/17/18 05:12 Total Bilirubin 1.3 mg/dL (0.2-1.0) H 03/17/18 05:12 AST 90 U/L (15-37) H 03/17/18 05:12 ALT 73 U/L (12-78) 03/17/18 05:12 Alkaline Phosphatase 222 U/L (45-117) H 03/17/18 05:12 Triglycerides 103 mg/dL (<150) 03/13/18 10:17 Lipase 679 U/L (73-393) H 03/16/18 05:41 Home Medications: Ferrous Sulfate 324 mg PO DAILY 03/12/18 Lactulose 15 ml PO BID 03/12/18 Lansoprazole 30 mg PO BID 03/12/18 Promethazine HCl 25 mg PO Q6H PRN 03/12/18 Tramadol HCl [Ultram] 50 mg PO BID 03/12/18 Patient Discharge Instructions: 1. Patient be transferred to higher level of care center for further evaluation of pancreatic mass, peripancreatic lymphadenopathy and multiple liver lesions. Patient will likely require ERCP with endoscopic ultrasound biopsy Diet: Patient currently on full liquid diet Activity: Fall precautions Time spent managing pt's care (in minutes): 55
[2018-03-17 14:58] VITALS: O2SAT 98
[2018-03-17 17:26] VITALS: BP 175/111; TEMP 97.6
== END 2018-03-17 16:35 | disposition short-term general hospital (02) | DRG 435 ==
LOC: SUPCPDRO 12:46 → ER 12:46 → ERHOLD 17:00 → 2ND 17:39
PROVIDERS: ADMIT Internal Medicine; ATTEND Hospitalist
DX: C25.9 Malignant neoplasm of pancreas, unspecified (principal); K85.90 Acute pancreatitis without necrosis or infection, unspecified; I82.890 Acute embolism and thrombosis of other specified veins; E44.0 Moderate protein-calorie malnutrition; E87.1 Hypo-osmolality and hyponatremia; C78.7 Secondary malignant neoplasm of liver and intrahepatic bile duct; E87.0 Hyperosmolality and hypernatremia; K86.1 Other chronic pancreatitis; K21.9 Gastro-esophageal reflux disease without esophagitis; D63.8 Anemia in other chronic diseases classified elsewhere; I10 Essential (primary) hypertension; Z87.891 Personal history of nicotine dependence; D50.9 Iron deficiency anemia, unspecified; F10.11 Alcohol abuse, in remission
CPT/HCPCS: 36415; 74176; 74181; 76377; 76705; 80048; 80053; 80076; 81003; 81015; 82728; 83540; 83690; 84466; 84478; 85025; 85610; 85730; 86301; 96374; 99285; G0008; J1650; J2405; J3010; J7030; J7512; Q2035

== ENCOUNTER 2018-03-29 14:47 | Emergency (ER) | payer OTHER ==
--- OUTSIDE RECORDS SUMMARY | 2018-03-29 14:49 | XMS REPORT | Clinical Summary ---
:1965 Author Organization [facility] Address [address] [place] [address] Care Team Providers Name Role Phone Unavailable Primary Care Provider Unavailable Allergies No Known Allergies Medications Medication Sig Dispensed Refills Start Date End Date Status acetaminophen Take 2 tablets 30 tablet 0 03/22/2018 03/17/2019 Active (TYLENOL) 325 MG (650 mg total) tablet by mouth every 4 (four) hours as needed for up to 360 days. HYDROcodone-acetaminop Take 1 tablet 30 tablet 0 03/22/2018 04/01/2018 Active hen (NORCO 5-325) by mouth every 5-325 mg per tablet 4 (four) hours as needed for up to 10 days. Max Daily Amount: 6 tablets oxyCODONE (OXYCONTIN) Take 1 tablet 10 tablet 0 03/22/2018 04/05/2018 Active 10 MG 12 hr tablet (10 mg total) by mouth every 12 (twelve) hours for 14 days. Max Daily Amount: 20 mg ondansetron Take 1 tablet 60 tablet 0 03/22/2018 03/29/2018 Active (ZOFRAN-ODT) 4 MG (4 mg total) by disintegrating tablet mouth every 6 (six) hours as needed for up to 7 days. polyethylene glycol Take 17 g by 14 each 0 03/22/2018 03/25/2018 (GLYCOLAX) 17 gram mouth daily as packet needed (Constipation) for up to 3 days. Active Problems Problem Noted Date Pancreatic adenocarcinoma 03/23/2018 Pancreatic mass 03/17/2018 Encounters Date Type Specialty Care Team Description 03/18/2018 Anesthesia Event Gastroenterology Maureen Echavarria, MANAGER PLAN 03/18/2018 Surgery Gastroenterology Nikita Quintero ERCP Ewelina 03/18/2018 Travel 03/17/2018 - Hospital Encounter Oncology Gadicherla, Pancreatic mass; 03/22/2018 Petra Liver metastases (HCC); MD Mona Alcohol abuse; Polina Rdz Acute recurrent pancreatitis; MD Alexandrea Hyponatremia Scott Mancera MD after 03/28/2017 Family History Medical History Relation Name Comments Diabetes Father Stroke Father Diabetes Mother Seizures Mother Relation Name Status Comments Father Mother Social History Tobacco Use Types Packs/Day Years Used Date Former Smoker Cigarettes 1 1 Quit: 03/17/2017 Smokeless Tobacco: Former User Alcohol Use Drinks/Week oz/Week Comments Yes Alcohol Habits Answer Date Recorded How often do you have a drink containing 4 or more times a week 03/17/2018 alcohol? How many drinks containing alcohol do you have 5 or 6 03/17/2018 on a typical day when you are drinking? How often do you have six or more drinks on one Weekly 03/17/2018 occasion? Sex Assigned at Date Recorded Not on file Job Start Date Occupation Industry Not on file Not on file Not on file Travel History Travel Start Travel End No recent travel history available. Last Filed Vital Signs Vital Sign Reading Time Taken Blood Pressure 128/96 03/22/2018 12:00 PM [employer] Pulse 103 03/22/2018 12:00 PM [employer] Temperature 36.1 C (96.9 F) 03/22/2018 12:00 PM [employer] Respiratory Rate 18 03/22/2018 12:00 PM [employer] Oxygen Saturation 98% 03/22/2018 12:00 PM [employer] Inhaled Oxygen Concentration - - Weight 57.6 kg (127 lb) 03/18/2018 12:59 PM CDT Height 162.6 cm (5' 4") 03/18/2018 12:59 PM CDT Body Mass Index 21.8 03/18/2018 12:59 PM CDT Plan of Treatment Not on file Procedures Procedure Name Priority Date/Time Associated Comments Diagnosis RHYTHM STRIP - SCAN 03/24/2018 7:40 AM [employer] CBC W/PLT COUNT & AUTO Routine 03/22/2018 4:13 Results for this DIFFERENTIAL AM [employer] procedure are in the results section. BASIC METABOLIC PANEL Routine 03/22/2018 4:13 Results for this (7) AM [employer] procedure are in the results section. CBC W/PLT COUNT & AUTO Routine 03/22/2018 4:13 Results for this DIFFERENTIAL AM [employer] procedure are in the results section. COMPREHENSIVE Routine 03/21/2018 5:01 Results for this METABOLIC PANEL AM [employer] procedure are in the results section. (CELLAVISION MANUAL Routine 03/20/2018 5:56 Results for this DIFF) AM [employer] procedure are in the results section. CBC W/PLT COUNT & AUTO Routine 03/20/2018 5:56 Results for this DIFFERENTIAL AM [employer] procedure are in the results section. COMPREHENSIVE Routine 03/20/2018 5:56 Results for this METABOLIC PANEL AM [employer] procedure are in the results section. CBC W/PLT COUNT & AUTO Routine 03/20/2018 5:56 Results for this DIFFERENTIAL AM [employer] procedure are in the results section. (CELLAVISION MANUAL Routine 03/19/2018 4:06 Results for this DIFF) AM CDT procedure are in the results section. CBC W/PLT COUNT & AUTO Routine 03/19/2018 4:06 Results for this DIFFERENTIAL AM CDT procedure are in the results section. COMPREHENSIVE Routine 03/19/2018 4:06 Results for this METABOLIC PANEL AM CDT procedure are in the results section. CBC W/PLT COUNT & AUTO Routine 03/19/2018 4:06 Results for this DIFFERENTIAL AM CDT procedure are in the results section. CT ABDOMEN/PELVIS WITH MISTI 03/18/2018 11:38 Results for this IV CONTRAST PM CDT procedure are in the results section. CT CHEST WITH IV MISTI 03/18/2018 11:38 Results for this CONTRAST PM CDT procedure are in the results section. CARBOHYDRATE ANTIGEN Routine 03/18/2018 6:20 Results for this 19-9 (CA 19-9) PM CDT procedure are in the results section. CREATININE, RANDOM Routine 03/18/2018 6:20 Results for this URINE PM CDT procedure are in the results section. SODIUM, RANDOM URINE Routine 03/18/2018 6:20 Results for this PM CDT procedure are in the results section. OSMOLALITY, URINE Routine 03/18/2018 6:20 Results for this PM CDT procedure are in the results section. COMPREHENSIVE STAT 03/18/2018 6:20 Results for this METABOLIC PANEL PM CDT procedure are in the results section. REPORT OF PROCEDURE - 03/18/2018 4:03 ENDOSCOPY URL PM CDT FINE NEEDLE ASPIRATE Routine 03/18/2018 3:02 Results for this (FNA) REQUEST PM CDT procedure are in the results section. FINE NEEDLE ASPIRATION AP Routine 03/18/2018 3:02 Results for this BY CLINICIAN PM CDT procedure are in the results section. FINE NEEDLE ASPIRATE Routine 03/18/2018 3:00 Results for this (FNA) REQUEST PM CDT procedure are in the results section. FINE NEEDLE ASPIRATION AP Routine 03/18/2018 3:00 Results for this BY CLINICIAN PM CDT procedure are in the results section. FL [employer] BANKING OFFICER IN OR 30 Routine 03/18/2018 2:49 Results for this MINUTE INCREMENTS PM CDT procedure are in the results section. FINE NEEDLE ASPIRATE Routine 03/18/2018 2:42 Results for this (FNA) REQUEST PM CDT procedure are in the results section. FINE NEEDLE ASPIRATION AP Routine 03/18/2018 2:42 Results for this BY CLINICIAN PM CDT procedure are in the results section. TISSUE EXAM AP Routine 03/18/2018 2:37 Results for this PM CDT procedure are in the results section. UPPER ENDOSCOPY,FNA 03/18/2018 1:00 Malignancy (HCC) W/ULTRASOUND PM CDT PROCEDURE W/ C-ARM 03/18/2018 1:00 Malignancy (HCC) PM CDT ERCP 03/18/2018 1:00 Malignancy (HCC) PM CDT CBC W/PLT COUNT & AUTO Routine 03/18/2018 4:34 Results for this DIFFERENTIAL AM CDT procedure are in the results section. CBC W/PLT COUNT & AUTO Routine 03/18/2018 4:34 Results for this DIFFERENTIAL AM CDT procedure are in the results section. CBC W/PLT COUNT & AUTO STAT 03/17/2018 7:59 Results for this DIFFERENTIAL PM CDT procedure are in the results section. LIPASE STAT 03/17/2018 7:59 Results for this PM CDT procedure are in the results section. CBC W/PLT COUNT & AUTO STAT 03/17/2018 7:59 Results for this DIFFERENTIAL PM CDT procedure are in the results section. PROTHROMBIN TIME/INR STAT 03/17/2018 7:59 Results for this PM CDT procedure are in the results section. COMPREHENSIVE STAT 03/17/2018 7:59 Results for this METABOLIC PANEL PM CDT procedure are in the results section. after 03/28/2017 Results RHYTHM STRIP - SCAN (03/24/2018 7:40 AM [employer]) Narrative Performed At CBC with platelet count + automated diff (03/22/2018 4:13 AM [employer])Only the most recent of5 resultswithin the time period is included. WBC 9.1 3.5 - 10.5 K/L [facility] RBC 4.55 (L) 4.63 - 6.08 M/L [facility] Hemoglobin 12.2 (L) 13.7 - 17.5 GM/DL [facility] Hematocrit 38.0 (L) 40.1 - 51.0 % [facility] MCV 83.5 79.0 - 92.2 fL [facility] MCH 26.8 25.7 - 32.2 pg [facility] MCHC 32.1 (L) 32.3 - 36.5 GM/DL [facility] RDW 13.2 11.6 - 14.4 % [facility] Platelets 265 150 - 450 K/CU MM [facility] MPV 10.3 9.4 - 12.4 fL [facility] nRBC 1 (H) 0 - 0 /100 WBC [facility] % Neutros 79 % [facility] % Lymphs 11 % [facility] % Monos 8 % [facility] % Eos 0 % [facility] % Baso 1 % [facility] # Neutros 7.19 (H) 1.78 - 5.38 K/L [facility] # Lymphs 1.03 (L) 1.32 - 3.57 K/L [facility] # Monos 0.72 0.30 - 0.82 K/L [facility] # Eos 0.02 (L) 0.04 - 0.54 K/L [facility] # Baso 0.05 0.01 - 0.08 K/L [facility] Immature Granulocytes-Relative 1 0 - 1 % [facility] Specimen Blood - Arm, Left Performing Organization Address City/[facility]/Zipcode Phone Number [facility] [address] [place] [address] [place] Basic Metabolic Panel (03/22/2018 4:13 AM [employer]) Sodium 131 (L) 136 - 145 meq/L [facility] Potassium 4.7 3.5 - 5.1 meq/L [facility] Chloride 89 (L) 98 - 107 meq/L [facility] CO2 32 (H) 22 - 29 meq/L [facility] BUN 6 (L) 7 - 21 mg/dL [facility] Creatinine 0.57 0.57 - 1.25 mg/dL [facility] Glucose 90 70 - 105 mg/dL [facility] Calcium 9.5 8.4 - 10.2 mg/dL [facility] EGFR 151Comment: ESTIMATED GFR IS mL/min/1.73 sq m [facility] NOT ACCURATE CREATININE [facility] CLEARANCE IN PREDICTING GLOMERULAR FILTRATION RATE. ESTIMATED GFR IS NOT APPLICABLE FOR DIALYSIS PATIENTS. Specimen Blood - Arm, Left Performing Organization Address [facility]/Zipcode Phone Number [address] [address] [place] Comprehensive metabolic panel (03/21/2018 5:01 AM [employer])Only the most recent of5 resultswithin the time period is included. Protein, Total 6.6 6.0 - 8.3 gm/dL [facility] Albumin 2.7 (L) 3.5 - 5.0 g/dL [facility] Alkaline Phosphatase 174 (H) 40 - 150 U/L [facility] Total Bilirubin 1.8 (H) 0.2 - 1.2 mg/dL [facility] Sodium 127 (L) 136 - 145 meq/L [facility] Potassium 3.5 3.5 - 5.1 meq/L [facility] Chloride 92 (L) 98 - 107 meq/L [facility] CO2 25 22 - 29 meq/L [facility] BUN 7 7 - 21 mg/dL [facility] Creatinine 0.55 (L) 0.57 - 1.25 mg/dL [facility] Glucose 81 70 - 105 mg/dL [facility] Calcium 8.5 8.4 - 10.2 mg/dL [facility] AST 156 (H) 5 - 34 U/L [facility] ALT 119 (H) 6 - 55 U/L [facility] EGFR 158Comment: ESTIMATED mL/min/1.73 sq m [facility] GFR IS NOT ACCURATE [facility] CREATININE CLEARANCE IN PREDICTING GLOMERULAR FILTRATION RATE. ESTIMATED GFR IS NOT APPLICABLE FOR DIALYSIS PATIENTS. Specimen Blood - Arm, Left Performing Organization Address City/State/Zipcode Phone Number [address] [address] [phone] CENTER Manual Differential (03/20/2018 5:56 AM [employer])Only the most recent of2 resultswithin the time period is included. Total Counted [facility] WBC Morphology Normal [facility] Platelet Morphology Normal [facility] Polychromasia 1+ few [facility] Anisocytosis 1+ few [facility] Specimen Blood - Arm, Right Performing Organization Address City/[facility]/Zipcode Phone Number [address] [address] [phone] abdomen/pelvis with IV contrast (03/18/2018 11:38 PM CDT) Narrative Performed At FINAL REPORT GE RIS HISTORY : pancreatic mass, needs staging TECHNIQUE :Multiple axial images of the chest, abdomen and pelvis were performed with 5 mm slice thickness with the administration of IV and oral contrast from the lung apices to the pubic symphysis. Delayed images were also obtained. This exam was performed according to our departmental dose optimization program which includes automated exposure control, adjustment of the mA and/or kV according to patient size and/or use of iterative reconstructive technique. COMPARISON : None CHEST : The thyroid gland is within normal limits. There is an enlarged subcarinal/periesophageal lymph node measuring up to 2.4 x 1.4 cm. The subcutaneous soft tissues as well as the musculature are within normal limits. Multilevel degenerative disc changes of the visualized thoracic spine are seen. No pneumothorax is visualized. There are small bilateral pleural effusions, right greater than left. Adjacent consolidations more likely represent atelectasis. In the right middle lobe, there is an approximately 0.2 cm nodule. Along the right fissure, there is a 0.3 cm nodule. ABDOMEN/PELVIS: The visualized spleen, adrenal glands, pancreas, gallbladder, stomach and duodenum are within normal limits. There are innumerable masses throughout the liver. The findings are most concerning for metastatic disease. The largest most distinct mass is seen anteriorly in the left hepatic lobe measuring up to 4.0 x 3.5 cm. A mass towards the hepatic dome measures up to 2.3 x 2.2 cm. There are some too small to characterize bilateral renal hypodensities but which more likely represent cysts. There is a nonspecific enlarged pericaval lymph node measuring up to 1.2 x 1.8 cm. There is a mass likely originating from the pancreatic body measuring 4.6 x 4.4 cm. There is at least 180 degrees of involvement of portions of the superior mesenteric artery. In addition, the mass abuts the main portal vein with at least 180 degrees of involvement. There is some indeterminate thrombus within the main portal vein that could represent bland or tumor thrombus. The mass also extends cephalically and appears to narrow the splenic artery. 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 Multilevel degenerative disc changes of the visualized lumbar spine are seen. In the dependent position of the pelvis, there is a mass measuring up to 3.4 x 2.7 cm just located anterior to the rectum and posterior to the seminal vesicle. This could represent a metastatic peritoneal deposit. The possibility of a colonic mass cannot be entirely excluded, however. There is also an omental mass in the periumbilical region measuring up to 2.1 x 1.4 cm. Some additional omental masses are also identified in the anterior abdomen. No free air is identified in the abdomen or pelvis. There is a small amount of nonspecific free fluid in the abdomen and pelvis. There are some nonspecific small sclerotic foci identified in the bilateral femoral heads. The findings are nonspecific but could represent bone islands. No findings of any bowel obstruction. The small bowel is within normal limits. There is colonic diverticulosis. There are no CT findings to suggest diverticulitis. The appendix is visualized. There are no CT findings to suggest appendicitis. The prostate gland is enlarged. The seminal vesicles are grossly within normal limits. Impression: 1. Pancreatic body mass most consistent with pancreatic carcinoma with vascular involvement as described above. There is some suspected bland versus tumor thrombus in the proximal main portal vein. 2. Innumerable hepatic masses most concerning for hepatic metastatic disease. 3. Partially visualized small bilateral pleural effusions. 4. Total of 2 subcentimeter right-sided pulmonary nodules. 5. Omental masses/metastatic deposits. There is also a lower pelvis mass anterior to the rectum but could represent a peritoneal based metastatic deposit. 6. Small amount of free fluid in the abdomen. 7. Enlarged subcarinal/paraesophageal lymph node as well as an enlarged pericaval lymph node in the abdomen. Signed: Grace Dumont MD Report Verified Date/Time:03/18/2018 23:52:55 Reading Location: [address] Consult Reading Room Procedure Note Interface, External Ris In - 03/18/2018 11:55 PM CDT FINAL REPORT HISTORY : pancreatic mass, needs staging TECHNIQUE : Multiple axial images of the chest, abdomen and pelvis were performed with 5 mm slice thickness with the administration of IV and oral contrast from the lung apices to the pubic symphysis. Delayed images were also obtained. This exam was performed according to our departmental dose optimization program which includes automated exposure control, adjustment of the mA and/or kV according to patient size and/or use of iterative reconstructive technique. COMPARISON : None CHEST : The thyroid gland is within normal limits. There is an enlarged subcarinal/periesophageal lymph node measuring up to 2.4 x 1.4 cm. The subcutaneous soft tissues as well as the musculature are within normal limits. Multilevel degenerative disc changes of the visualized thoracic spine are seen. No pneumothorax is visualized. There are small bilateral pleural effusions, right greater than left. Adjacent consolidations more likely represent atelectasis. In the right middle lobe, there is an approximately 0.2 cm nodule. Along the right fissure, there is a 0.3 cm nodule. ABDOMEN/PELVIS: The visualized spleen, adrenal glands, pancreas, gallbladder, stomach and duodenum are within normal limits. There are innumerable masses throughout the liver. The findings are most concerning for metastatic disease. The largest most distinct mass is seen anteriorly in the left hepatic lobe measuring up to 4.0 x 3.5 cm. A mass towards the hepatic dome measures up to 2.3 x 2.2 cm. There are some too small to characterize bilateral renal hypodensities but which more likely represent cysts. There is a nonspecific enlarged pericaval lymph node measuring up to 1.2 x 1.8 cm. There is a mass likely originating from the pancreatic body measuring 4.6 x 4.4 cm. There is at least 180 degrees of involvement of portions of the superior mesenteric artery. In addition, the mass abuts the main portal vein with at least 180 degrees of involvement. There is some indeterminate thrombus within the main portal vein that could represent bland or tumor thrombus. The mass also extends cephalically and appears to narrow the splenic artery. 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 Multilevel degenerative disc changes of the visualized lumbar spine are seen. In the dependent position of the pelvis, there is a mass measuring up to 3.4 x 2.7 cm just located anterior to the rectum and posterior to the seminal vesicle. This could represent a metastatic peritoneal deposit. The possibility of a colonic mass cannot be entirely excluded, however. There is also an omental mass in the periumbilical region measuring up to 2.1 x 1.4 cm. Some additional omental masses are also identified in the anterior abdomen. No free air is identified in the abdomen or pelvis. There is a small amount of nonspecific free fluid in the abdomen and pelvis. There are some nonspecific small sclerotic foci identified in the bilateral femoral heads. The findings are nonspecific but could represent bone islands. No findings of any bowel obstruction. The small bowel is within normal limits. There is colonic diverticulosis. There are no CT findings to suggest diverticulitis. The appendix is visualized. There are no CT findings to suggest appendicitis. The prostate gland is enlarged. The seminal vesicles are grossly within normal limits. Impression: 1. Pancreatic body mass most consistent with pancreatic carcinoma with vascular involvement as described above. There is some suspected bland versus tumor thrombus in the proximal main portal vein. 2. Innumerable hepatic masses most concerning for hepatic metastatic disease. 3. Partially visualized small bilateral pleural effusions. 4. Total of 2 subcentimeter right-sided pulmonary nodules. 5. Omental masses/metastatic deposits. There is also a lower pelvis mass anterior to the rectum but could represent a peritoneal based metastatic deposit. 6. Small amount of free fluid in the abdomen. 7. Enlarged subcarinal/paraesophageal lymph node as well as an enlarged pericaval lymph node in the abdomen. Signed: Grace Dumont MD Report Verified Date/Time: 03/18/2018 23:52:55 Reading Location: [facility] [id number] Consult Reading Room Performing Organization Address City/State/Zipcode Phone Number GE [email or web address] CT chest with IV contrast (03/18/2018 11:38 PM CDT) Narrative Performed At FINAL REPORT Jini HISTORY : pancreatic mass, needs staging TECHNIQUE :Multiple axial images of the chest, abdomen and pelvis were performed with 5 mm slice thickness with the administration of IV and oral contrast from the lung apices to the pubic symphysis. Delayed images were also obtained. This exam was performed according to our departmental dose optimization program which includes automated exposure control, adjustment of the mA and/or kV according to patient size and/or use of iterative reconstructive technique. COMPARISON : None CHEST : The thyroid gland is within normal limits. There is an enlarged subcarinal/periesophageal lymph node measuring up to 2.4 x 1.4 cm. The subcutaneous soft tissues as well as the musculature are within normal limits. Multilevel degenerative disc changes of the visualized thoracic spine are seen. No pneumothorax is visualized. There are small bilateral pleural effusions, right greater than left. Adjacent consolidations more likely represent atelectasis. In the right middle lobe, there is an approximately 0.2 cm nodule. Along the right fissure, there is a 0.3 cm nodule. ABDOMEN/PELVIS: The visualized spleen, adrenal glands, pancreas, gallbladder, stomach and duodenum are within normal limits. There are innumerable masses throughout the liver. The findings are most concerning for metastatic disease. The largest most distinct mass is seen anteriorly in the left hepatic lobe measuring up to 4.0 x 3.5 cm. A mass towards the hepatic dome measures up to 2.3 x 2.2 cm. There are some too small to characterize bilateral renal hypodensities but which more likely represent cysts. There is a nonspecific enlarged pericaval lymph node measuring up to 1.2 x 1.8 cm. There is a mass likely originating from the pancreatic body measuring 4.6 x 4.4 cm. There is at least 180 degrees of involvement of portions of the superior mesenteric artery. In addition, the mass abuts the main portal vein with at least 180 degrees of involvement. There is some indeterminate thrombus within the main portal vein that could represent bland or tumor thrombus. The mass also extends cephalically and appears to narrow the splenic artery. 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 Multilevel degenerative disc changes of the visualized lumbar spine are seen. In the dependent position of the pelvis, there is a mass measuring up to 3.4 x 2.7 cm just located anterior to the rectum and posterior to the seminal vesicle. This could represent a metastatic peritoneal deposit. The possibility of a colonic mass cannot be entirely excluded, however. There is also an omental mass in the periumbilical region measuring up to 2.1 x 1.4 cm. Some additional omental masses are also identified in the anterior abdomen. No free air is identified in the abdomen or pelvis. There is a small amount of nonspecific free fluid in the abdomen and pelvis. There are some nonspecific small sclerotic foci identified in the bilateral femoral heads. The findings are nonspecific but could represent bone islands. No findings of any bowel obstruction. The small bowel is within normal limits. There is colonic diverticulosis. There are no CT findings to suggest diverticulitis. The appendix is visualized. There are no CT findings to suggest appendicitis. The prostate gland is enlarged. The seminal vesicles are grossly within normal limits. Impression: 1. Pancreatic body mass most consistent with pancreatic carcinoma with vascular involvement as described above. There is some suspected bland versus tumor thrombus in the proximal main portal vein. 2. Innumerable hepatic masses most concerning for hepatic metastatic disease. 3. Partially visualized small bilateral pleural effusions. 4. Total of 2 subcentimeter right-sided pulmonary nodules. 5. Omental masses/metastatic deposits. There is also a lower pelvis mass anterior to the rectum but could represent a peritoneal based metastatic deposit. 6. Small amount of free fluid in the abdomen. 7. Enlarged subcarinal/paraesophageal lymph node as well as an enlarged pericaval lymph node in the abdomen. Signed: Grace Dumont MD Report Verified Date/Time:03/18/2018 23:52:55 Reading Location: [address] Consult Reading Room Procedure Note Interface, External Ris In - 03/18/2018 11:55 PM CDT FINAL REPORT HISTORY : pancreatic mass, needs staging TECHNIQUE : Multiple axial images of the chest, abdomen and pelvis were performed with 5 mm slice thickness with the administration of IV and oral contrast from the lung apices to the pubic symphysis. Delayed images were also obtained. This exam was performed according to our departmental dose optimization program which includes automated exposure control, adjustment of the mA and/or kV according to patient size and/or use of iterative reconstructive technique. COMPARISON : None CHEST : The thyroid gland is within normal limits. There is an enlarged subcarinal/periesophageal lymph node measuring up to 2.4 x 1.4 cm. The subcutaneous soft tissues as well as the musculature are within normal limits. Multilevel degenerative disc changes of the visualized thoracic spine are seen. No pneumothorax is visualized. There are small bilateral pleural effusions, right greater than left. Adjacent consolidations more likely represent atelectasis. In the right middle lobe, there is an approximately 0.2 cm nodule. Along the right fissure, there is a 0.3 cm nodule. ABDOMEN/PELVIS: The visualized spleen, adrenal glands, pancreas, gallbladder, stomach and duodenum are within normal limits. There are innumerable masses throughout the liver. The findings are most concerning for metastatic disease. The largest most distinct mass is seen anteriorly in the left hepatic lobe measuring up to 4.0 x 3.5 cm. A mass towards the hepatic dome measures up to 2.3 x 2.2 cm. There are some too small to characterize bilateral renal hypodensities but which more likely represent cysts. There is a nonspecific enlarged pericaval lymph node measuring up to 1.2 x 1.8 cm. There is a mass likely originating from the pancreatic body measuring 4.6 x 4.4 cm. There is at least 180 degrees of involvement of portions of the superior mesenteric artery. In addition, the mass abuts the main portal vein with at least 180 degrees of involvement. There is some indeterminate thrombus within the main portal vein that could represent bland or tumor thrombus. The mass also extends cephalically and appears to narrow the splenic artery. 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 Multilevel degenerative disc changes of the visualized lumbar spine are seen. In the dependent position of the pelvis, there is a mass measuring up to 3.4 x 2.7 cm just located anterior to the rectum and posterior to the seminal vesicle. This could represent a metastatic peritoneal deposit. The possibility of a colonic mass cannot be entirely excluded, however. There is also an omental mass in the periumbilical region measuring up to 2.1 x 1.4 cm. Some additional omental masses are also identified in the anterior abdomen. No free air is identified in the abdomen or pelvis. There is a small amount of nonspecific free fluid in the abdomen and pelvis. There are some nonspecific small sclerotic foci identified in the bilateral femoral heads. The findings are nonspecific but could represent bone islands. No findings of any bowel obstruction. The small bowel is within normal limits. There is colonic diverticulosis. There are no CT findings to suggest diverticulitis. The appendix is visualized. There are no CT findings to suggest appendicitis. The prostate gland is enlarged. The seminal vesicles are grossly within normal limits. Impression: 1. Pancreatic body mass most consistent with pancreatic carcinoma with vascular involvement as described above. There is some suspected bland versus tumor thrombus in the proximal main portal vein. 2. Innumerable hepatic masses most concerning for hepatic metastatic disease. 3. Partially visualized small bilateral pleural effusions. 4. Total of 2 subcentimeter right-sided pulmonary nodules. 5. Omental masses/metastatic deposits. There is also a lower pelvis mass anterior to the rectum but could represent a peritoneal based metastatic deposit. 6. Small amount of free fluid in the abdomen. 7. Enlarged subcarinal/paraesophageal lymph node as well as an enlarged pericaval lymph node in the abdomen. Signed: Grace Dumont MD Report Verified Date/Time: 03/18/2018 23:52:55 Reading Location: [facility] [id number] Consult Reading Room Performing Organization Address City/[facility] Cent[facility]ode Phone Number [facility] Carbohydrate antigen 19-9 (CA 19-9) (03/18/2018 6:20 PM CDT) CA 19-9 46975 (H) <34 U/mL [facility] Comment: This test was performed using the Siemens (SHADOW) Chemiluminescent method. Values obtained from different assay methods cannot be used interchangeably. CA19-9 levels, regardless of value, should not be interpreted as absolute evidence of the presence or absence of disease. Specimen Blood Narrative Performed At Performing Lab [facility] [address] [address] Vanda Du MD, PhD, BRANDON Performing Organization Address [facility] Centercomn Phone Number [place] [address] [place] [address] Sodium, random urine (03/18/2018 6:20 PM CDT) Sodium Urine 132 meq/L [facility] Specimen Urine Narrative Performed At Reference Range: No Normals [facility] Performing Organization Address [facility] Centercode Phone Number [address] [address] CENTER Osmolality, urine (03/18/2018 6:20 PM CDT) Osmolality, Ur 423 40-1,400 mOsm/kg [facility] Specimen Urine Performing Organization Address [facility] Centercomn Phone Number [address] [address] CENTER Creatinine, random urine (03/18/2018 6:20 PM CDT) Creatinine, Ur 27.7 mg/dL [facility] Specimen Urine Narrative Performed At Reference Range: No Normals [facility] Performing Organization Address City/[facility]/Zipcode Phone Number [facility] [address] [place], [place] [phone] [place] REPORT OF PROCEDURE - ENDOSCOPY URL (03/18/2018 4:03 PM CDT) Narrative Performed At FINE NEEDLE ASPIRATE (FNA) REQUEST (03/18/2018 3:02 PM CDT)Only the most recent of3 resultswithin the time period is included. Cytology See Separate Report [facility] Specimen Fine Needle Aspirate - Pancreas Performing Organization Address [facility] Centercode Phone Number [facility] [address] [place] [address] CENTER Fine Needle Aspirate by Clinician (03/18/2018 3:02 PM CDT)Only the most recent of3 resultswithin the time period is included. Case Report Medical Cytology Report Case: [id number] [facility] Authorizing Provider:Nikita Quinteroected: 03/18/2018 [facility]2 [facility] Ordering Location: [address] Received: 03/18/2018 1553 SERVICE Pathologist: Stacie Garcia Specimen:Pancreas, tail of pancreas in CRR for routine cyto (may have a sample of gastro-hepatic lymph node in sample) DIAGNOSIS PANCREAS TAIL MASS FNA BY CLINICIAN (CYTOSPINS AND CELL BLOCK OF ASPIRATE): [facility] - NEGATIVE FOR MALIGNANCY [facility] - NUMEROUS LYMPHOCYTES PRESENT Signing Pathologist Direct Phone Line: [phone] COMMENT Please see cases [id number], [id number], and [id number] [facility] The intraoperative procedural report notes that the cytology specimen and the pancreas mass biopsy were mixed. Clinical correlation is recommended. The current sample shows predominantly lymphocytes suggestive of a lymph node. Interdepartmental consultation: Angelo Howard M.D. has reviewed the case and agrees with the findings. CPT Code(s) 99677, 57725 [facility] CLINICAL DATA Pancreas mass with mets to the [facility] liver, (4.6 cm) round mass in [facility] the pancreatic neck, cytology sample was partially mixed with the gastrohepatic lymph node sample. SPECIMEN SOURCE PANCREAS TAIL MASS FNA [facility] GROSS DESCRIPTION 22 mls in cytorich red; 4 cytospins, cell block [facility] Collected: [id number] [facility] Received: [id number] MICROSCOPIC DESCRIPTION Cytospins show a background of [facility] abundant lymphocytes. No [facility] epithelial cell clusters or malignancy are seen. The cell blocks have limited cellularity with some scattered lymphocytes. SPECIAL STUDIES The interpretation of this case included the use of immunohistochemistry or special stains. [facility] Immunohistochemistry technical testing was performed at [facility], Pathology Laboratory where it was developed and its performance characteristics were determined. It has not be en cleared or approved by the U.S. Food and Drug Administration. The FDA has determined that such clearance or approval is not necessary. The test is used for clinical purposes. It should not be regarde d as investigational or for research. This laboratory is certified under the Clinical Laboratory Improvement Amendments of 1988 (CLIA-88) as qualified to perform high complexity clinical laboratory testing. Gross assessment was [facility] performed at [place], Department [facility] Pathology, [address] [place] [address], Technical component was [facility] performed at [place], Department [facility], [address] [place] [address], Professional component [facility] was performed at [place], [facility], [address] [place] [address], Specimen Fine Needle Aspirate - Pancreas Narrative Performed At Performing Organization Address City/State/Zipcode Phone Number [address] [address] [facility] grades 7 8 tutor in or 30 minute increments (03/18/2018 2:49 PM CDT) Narrative Performed At FLUOROSCOPIC UNIT UTILIZED-NO INTERPRETATION REQUESTED. [facility] Procedure Note Interface, External Ris In - 03/21/2018 8:17 AM [employer] FLUOROSCOPIC UNIT UTILIZED-NO INTERPRETATION REQUESTED. Performing Organization Address City/State/Zipcode Phone Number [facility] Tissue Exam (03/18/2018 2:37 PM CDT) Case Report Surgical Pathology Report Case: [id number] [facility] Authorizing Provider:Nikita Quinteroected: 03/18/2018 [facility]7 [facility] Ordering Location: [address] Received: 03/18/2018 1606 SERVICE Pathologist: Ngozi Serna MD Specimens: A) - Hepatic, LEFT HEPATIC LESION FNB B) - Pancreas, TAIL OF PANCREAS MASS FNB ADDENDUM Addendum to document intradepartmental consultation: [facility] These two samples are reviewed by Kulwinder Howard M.D., who agrees with the diagnoses given. DIAGNOSIS A. 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 TAIL OF PANCREAS, CORE BIOPSY: - POORLY DIFFERENTIATED ADENOCARCINOMA Signing Pathologist Direct Phone Line: [phone] COMMENT If additional immunohistochemical stains are deemed necessary, an addendum with those findings will follow. [facility] There is also some pancreatitis in that biopsy. [facility] CPT Code(s) 03417 x 2 [facility] CLINICAL HISTORY Malignancy [facility] SPECIMEN SOURCE A. Left hepatic lesion FNB [facility] B. Tail of pancreas mass FNB [facility] GROSS DESCRIPTION Specimen is received in two containers of formalin all labeled with the patient's information. [facility] Part A labeled "left hepatic lesion FNB" and consists of multiple fragments of stringy hemorrhagic tissue measuring 1 x 1 x 0.3 cm in aggregate submitted entirely A1. Part B labeled "tail of pancreas mass FNB" and consists of multiple fragments of perez-red soft tissue ranging from less than 0.1 to 0.6 cm submitted entirely B1. /bc MICROSCOPIC DESCRIPTION A. The liver biopsy shows fragments of hepatic parenchyma wit fat. There is also rather abundant tumor with features consistent with metastatic pancreatic ductal adenocarcinoma. The latter shows highly [facility] atypical cells, invasive into a desmoplastic-type stroma necrotic tumor and calcification is also noted. [facility] B. The pancreatic biopsy shows invasive poorly differentiated adenocarcinoma , with some associated desmoplasia, focal necrosis, and foci suggestive of squamous differentiation.Pancreatic acinar tissue is also note Specimen Tissue - Hepatic Performing Organization Address City/[facility]/Zipcode Phone Number [address] [address] [phone] CENTER Prothrombin time/INR (03/17/2018 7:59 PM CDT) Protime 16.5 (H) 11.7 - 14.7 seconds [facility] INR 1.3 <=5.9 [facility] Specimen Blood - Arm, Left Narrative Performed At RECOMMENDED COUMADIN/WARFARIN INR THERAPY [facility] RANGES STANDARD DOSE: 2.0 - 3.0 Includes: PROPHYLAXIS for venous thrombosis, systemic embolization; TREATMENT for venous thrombosis and/or pulmonary embolus. HIGH RISK: Target INR is 2.5-3.5 for patients with mechanical heart valves. Performing Organization Address City/[facility] Centercode Phone Number [place] [phone] [place] [address] CENTER Lipase (03/17/2018 7:59 PM CDT) Lipase 143 (H) 8 - 78 U/L [facility] Specimen Blood - Arm, Left Performing Organization Address City/[facility]/Zipcode Phone Number [place] [phone] [place] [address] [phone] CENTER after 03/28/2017 Insurance Payer Benefit Plan / Group Subscriber ID Type Phone Address MEDICARE MEDICARE A B xxxxxxxxxxx Medicare MEDICAID MEDICAID [facility] xxxxxxxxx Medicaid Advance Directives For more information, please contact:[place] [id number] [place], [place] [phone] Code Status Date Activated Date Inactivated Comments Full Code 03/17/2018 7:12 PM This code status was determined by: Patient
--- OUTSIDE RECORDS SUMMARY | 2018-03-29 14:50 | XMS REPORT ---
:1965 [facility] [place] [address] Care Team Providers Name Role Phone CATALINA ALLRED Unavailable Unavailable Problems This patient has no known problems. Allergies, Adverse Reactions, Alerts This patient has no known allergies or adverse reactions. Medications This patient has no known medications. Results Test Description Test Time Test Comments Text Results Atomic Results Result Comments BASIC METABOLIC PANEL 2018-03-22 06:24:00 Test Item Value Reference Range Comments SODIUM (BEAKER) (test 131 meq/L 136-145 nlvt=624) POTASSIUM (BEAKER) (test 4.7 meq/L 3.5-5.1 dyjh=342) CHLORIDE (BEAKER) (test 89 meq/L 98-107 dyyk=877) CO2 (BEAKER) (test 32 meq/L 22-29 nrcu=169) BLOOD UREA NITROGEN 6 mg/dL 7-21 (BEAKER) (test tqru=627) CREATININE (BEAKER) (test 0.57 mg/dL 0.57-1.25 kzor=617) GLUCOSE RANDOM (BEAKER) 90 mg/dL 70-105 (test says=613) CALCIUM (BEAKER) (test 9.5 mg/dL 8.4-10.2 fkcg=837) EGFR (BEAKER) (test 151 mL/min/1.73 sq m ESTIMATED GFR IS NOT wmle=6129) ACCURATE CREATININE CLEARANCE IN PREDICTING GLOMERULAR FILTRATION RATE. ESTIMATED GFR IS NOT APPLICABLE FOR DIALYSIS PATIENTS. CBC W/PLT COUNT & AUTO [id number] 06:07:00 Test Item Value Reference Range Comments WHITE BLOOD CELL COUNT (BEAKER) (test lyqj=142) 9.1 K/ L 3.5-10.5 RED BLOOD CELL COUNT (BEAKER) (test prbo=918) 4.55 M/ L 4.63-6.08 HEMOGLOBIN (BEAKER) (test rkhe=575) 12.2 GM/DL 13.7-17.5 HEMATOCRIT (BEAKER) (test rkzd=976) 38.0 % 40.1-51.0 MEAN CORPUSCULAR VOLUME (BEAKER) (test ubou=933) 83.5 fL 79.0-92.2 MEAN CORPUSCULAR HEMOGLOBIN (BEAKER) (test 26.8 pg 25.7-32.2 nmji=570) MEAN CORPUSCULAR HEMOGLOBIN CONC (BEAKER) (test 32.1 GM/DL 32.3-36.5 jewt=895) RED CELL DISTRIBUTION WIDTH (BEAKER) (test 13.2 % 11.6-14.4 weow=608) PLATELET COUNT (BEAKER) (test mrsd=551) 265 K/CU MM 150-450 MEAN PLATELET VOLUME (BEAKER) (test iwjv=006) 10.3 fL 9.4-12.4 NUCLEATED RED BLOOD CELLS (BEAKER) (test 1 /100 WBC 0-0 krkq=673) NEUTROPHILS RELATIVE PERCENT (BEAKER) (test 79 % tgjc=338) LYMPHOCYTES RELATIVE PERCENT (BEAKER) (test 11 % waky=976) MONOCYTES RELATIVE PERCENT (BEAKER) (test 8 % cpkm=315) EOSINOPHILS RELATIVE PERCENT (BEAKER) (test 0 % ychg=426) BASOPHILS RELATIVE PERCENT (BEAKER) (test 1 % gxtc=768) NEUTROPHILS ABSOLUTE COUNT (BEAKER) (test 7.19 K/ L 1.78-5.38 iqnx=330) LYMPHOCYTES ABSOLUTE COUNT (BEAKER) (test 1.03 K/ L 1.32-3.57 ousq=826) MONOCYTES ABSOLUTE COUNT (BEAKER) (test 0.72 K/ L 0.30-0.82 jcdv=708) EOSINOPHILS ABSOLUTE COUNT (BEAKER) (test 0.02 K/ L 0.04-0.54 facc=294) BASOPHILS ABSOLUTE COUNT (BEAKER) (test 0.05 K/ L 0.01-0.08 boph=202) IMMATURE GRANULOCYTES-RELATIVE PERCENT (BEAKER) 1 % 0-1 (test ynnk=0476) TISSUE [id number] 16:15:00Surgical Pathology Report Case: [id number] Authorizing Provider: Nikita Quintero Collected: 03/18/2018 1437 Ordering Location: [address] Received: 03/18/2018 1602 SERVICE Pathologist: Ngozi Serna MD Specimens: A) - Hepatic, LEFT HEPATIC LESION FNB B) -Pancreas, TAIL OF PANCREAS MASS FNB Addendum to documentintradepartmental consultation:These two samples are reviewed by Kulwinder Howard M.D., who agrees with the diagnoses given.Addendum electronically signed by Ngozi Serna MD on 03/21/2018 at 4:15 PMA. LEFT HEPATIC LESION, CORE BIOPSY: - POORLY-DIFFERENTIATED ADENOCARCINOMA, CONSISTENT WITH METASTATIC CARCINOMA OF PANCREATIC DUCTAL TYPE - LIVER WITH FATTY CHANGEB. TAIL OF PANCREAS, CORE BIOPSY: - POORLY DIFFERENTIATED ADENOCARCINOMA Signing Pathologist Direct Phone Line: [phone] If additional immunohistochemical stains are deemed necessary, an addendum with those findings will follow.There is alsosome pancreatitis in that biopsy.62638 x 2MalignancyA. Left hepatic lesion FNBB. Tail of pancreas mass FNBSpecimen is received in two containers of formalin all labeled with the patient's information.Part A labeled "left hepatic lesion FNB" and consists of multiple fragments of stringy hemorrhagic tissue measuring 1 x 1 x 0.3 cm in aggregate submitted entirely A1. Part B labeled "tail of pancreas mass FNB" and consists of multiple fragments of perez-red soft tissue ranging from less than 0.1 to 0.6 cm submitted entirely B1. CG/bc A. The liver biopsy shows fragments of hepatic parenchyma wit fat. There is also rather abundant tumor with features consistent with metastatic pancreatic ductal adenocarcinoma. The latter shows highly atypical cells, invasive into a desmoplastic-type stroma necrotic tumor and calcification is also noted.B. The pancreatic biopsy shows invasive poorly differentiated adenocarcinoma, with some associated desmoplasia, focal necrosis , and foci suggestive of squamous differentiation.Pancreatic acinar tissue is also noteFINE NEEDLE ASPIRATION BY [id number] 16:03:00Medical Cytology Report Case: [id number] Authorizing Provider: Nikita Quintero Collected: 2017 1500 Ordering Location: [address] Received : 03/18/2018 5531 SERVICE Pathologist: Stacie Garcia Specimen: Lymph Node, Mediastinal lymph node in CRR for routine cyto MEDIASTINAL LYMPHNODE FNA BY CLINICIAN (CYTOSPINS AND CELL BLOCK OF ASPIRATE): - POSITIVE FOR MALIGNANCY, ADENOCARCINOMA Signing Pathologist Direct Phone Line: [phone] signed by Liyah Garcia on 2017 at 4:03 PMPlease see cases [id number], [id number], and [id number] consultation - Dr. Angelo Howard has reviewed the case and agrees with the findings.63042, 78252Vbsqzjphoy mass with mets to the liver, (1.8 cm) enlarged round lymph node in the mediastinumMEDIASTINAL LYMPHNODE FNA25 mls in cytorich red; 4 cytospins, cell blockCollected: [id number]: [id number] and cell blocks show abundant dispersed and clustered atypical cells with a background of debris. Many of the cells are atypical with increased nuclear cytoplasmic ratio, nucleoli and nuclear pleomorphism. Some of the groups are forming glands. The findings are positive for malignancy.The interpretation of this case included the use of immunohistochemistry or special stains. Immunohistochemistry technical testing was performed at [facility], Pathology Laboratory where it was developed and its performance characteristics were determined. It has not been cleared or approved by the U.S. Food and Drug Administration. The FDA has determined that such clearance or approval is not necessary. The test is used for clinical purposes. It should not be regarded as investigational or for research. This laboratory is certified under the Clinical Laboratory Improvement Amendments of 1988 (CLIA-88 ) as qualified to perform high complexity clinical laboratory testing.[facility], Department of Pathology, [address] [place] [address], [facility] of [facility], [address] [place] [address], [facility], Department of Pathology, [address] [place], [place] [address], ZTJE NEEDLE ASPIRATION BY [id number] 16:02: 00Medical Cytology Report Case: [id number] Authorizing Provider: Nikita Quintero Collected : 03/18/2018 1502 Ordering Location: [address] Received: 03/18/2018 1553 SERVICE Pathologist: Stacie Garcia Specimen: Pancreas, tail of pancreas in CRR for routine cyto (may have a sample of gastro-hepatic lymph node in sample) PANCREAS TAIL MASS FNA BY CLINICIAN ( CYTOSPINS AND CELL BLOCK OF ASPIRATE): - NEGATIVE FOR MALIGNANCY - NUMEROUS LYMPHOCYTES PRESENT Signing Pathologist Direct Phone Line: [phone] Please see cases [id number], [id number], and [id number] intraoperative procedural report notes that the cytology specimen and the pancreas mass biopsy were mixed. Clinical correlation is recommended. The current sample shows predominantly lymphocytes suggestive of a lymph node.Interdepartmental consultation: Angelo Howard M.D. has reviewed the case and agrees with the findings.16785, 23075Aghnqaxv mass with mets to the liver, (4.6 cm) round mass in the pancreatic neck, cytology sample was partially mixed with the gastrohepatic lymph node sample.PANCREAS TAIL MASS FNA22 mls in cytorich red; 4 cytospins, cell blockCollected: [id number]: [id number] show a background of abundant lymphocytes. No epithelial cell clusters or malignancy are seen. The cell blocks have limited cellularity with some scattered lymphocytes.The interpretation of this case included the use of immunohistochemistry or special stains. Immunohistochemistry technical testing was performed at [facility], Pathology Laboratory where it was developed and its performance characteristics were determined. It has not been cleared or approved by the U.S. Food and Drug Administration. The FDA has determined that such clearance or approval is not necessary. The test is usedfor clinical purposes. It should not be regarded as investigational or for research. This laboratoryis certified under the Clinical Laboratory Improvement Amendments of 1988 (CLIA-88) as qualified to perform high complexity clinical laboratory testing.[facility], Department of Pathology, [address] [place] [address], [facility], [facility] of [facility], [address] [place] [address] , [facility], Department of Pathology, [address] [place] [address], ONHD NEEDLE ASPIRATION BY [id number] 16:02:00Medical Cytology Report Case: [id number] Authorizing Provider: Nikita Quintero Collected: 03/18/2018 1442 Ordering Location: [address] Received: 03/18/2018 1552 SERVICE Pathologist: Stacie Garcia Specimen: Lymph Node, Gastro hepatic lymph node for routine cyto in CRR GASTRO HEPATIC LYMPH NODE FNA BY CLINICIAN (CYTOSPINS AND CELL BLOCK OF ASPIRATE): - POSITIVE FOR MALIGNANCY, ADENOCARCINOMA - BACKGROUND OF LYMPHOID TISSUE - SEE COMMENTKS/pl Signing Pathologist Direct Phone Line: [phone] signed by Stacie Garcia on 03/21/2018 at 4:02 PMPlease see cases [id number], [id number], and [id number].It is noted that the pancreatic mass and lymph node sample were partially mixed. Therefore, clinical correlation is recommended for the tumor seen in the current specimen. Interdepartmental consultation: Angelo Howard M.D. has reviewed the case and agrees with thefindings. 78541, 94201Xdqubbhywn mass with mets to the liver, (1.1 cm) enlarged lymph node in the gastrohepatic ligamentGASTRO HEPATIC LYMPH NODE FNA22 mls in cytorich red; 4 cytospins, cell blockCollected: [id number]: 520309Vxwp: The gastrohepatic lymph node sample and the pancreas mass sample were partially mixed. This does account for the same cytological findings. Clinical correlation is recommended. Cytospins from gastrohepatic lymph node show a background of small lymphocytes as well as few groups of epithelial cells. The cell block shows cores of pancreatic tissue as well as separate portions of tissue of lymphocytes. Few of the cores of pancreatic tissue show atypical cells with increased nucleus to cytoplasmic ratio, nucleoli and pleomorphism. These findings are positive for malignancy. The interpretation of this case included the use of immunohistochemistry or special stains. Immunohistochemistry technical testing was performed at [facility], Pathology Laboratory where it was developed and its performance characteristics were determined. It has not been cleared or approved by the U.S. Food and Drug Administration. The FDA has determined that such clearanceor approval is not necessary. The test is used for clinical purposes. It should not be regarded as investigational or for research. This laboratory is certified under the Clinical Laboratory Improvement Amendments of 1988 (CLIA-88) as qualified to perform high complexity clinical laboratory testing.[facility], Department of Pathology, [address] [place] [address], [facility], Department of Pathology, [address] [place] [address], [facility], Department of [facility]ology, [address] [place] [address], [facility], [employer] IN OR/30 MINUTE [id number] 08:17:00INTRA OP IMAGINGReason for exam:-> MALIGNANCYFLUOROSCOPIC UNIT UTILIZED-NO INTERPRETATION REQUESTED. COMPREHENSIVE METABOLIC [id number] 07:01:00 Test Item Value Reference Range Comments TOTAL PROTEIN (BEAKER) 6.6 gm/dL 6.0-8.3 (test szro=375) ALBUMIN (BEAKER) (test 2.7 g/dL 3.5-5.0 cept=4029) ALKALINE PHOSPHATASE 174 U/L 40-150 (BEAKER) (test zmil=767) BILIRUBIN TOTAL (BEAKER) 1.8 mg/dL 0.2-1.2 (test soyo=728) SODIUM (BEAKER) (test 127 meq/L 136-145 oocm=535) POTASSIUM (BEAKER) (test 3.5 meq/L 3.5-5.1 jzhr=392) CHLORIDE (BEAKER) (test 92 meq/L 98-107 wltm=494) CO2 (BEAKER) (test 25 meq/L 22-29 zjmm=527) BLOOD UREA NITROGEN 7 mg/dL 7-21 (BEAKER) (test idpq=058) CREATININE (BEAKER) (test 0.55 mg/dL 0.57-1.25 wjbq=957) GLUCOSE RANDOM (BEAKER) 81 mg/dL 70-105 (test rdpe=431) CALCIUM (BEAKER) (test 8.5 mg/dL 8.4-10.2 gjvd=509) AST (SGOT) (BEAKER) (test 156 U/L 5-34 brom=956) ALT (SGPT) (BEAKER) (test 119 U/L 6-55 vxot=841) EGFR (BEAKER) (test 158 mL/min/1.73 sq ESTIMATED GFR IS NOT veng=3675) m ACCURATE CREATININE CLEARANCE IN PREDICTING GLOMERULAR FILTRATION RATE. ESTIMATED GFR IS NOT APPLICABLE FOR DIALYSIS PATIENTS. CBC W/PLT COUNT & AUTO [id number] 09:52:00 Test Item Value Reference Range Comments WHITE BLOOD CELL COUNT (BEAKER) (test ddbj=714) 9.2 K/ L 3.5-10.5 RED BLOOD CELL COUNT (BEAKER) (test rejj=725) 4.40 M/ L 4.63-6.08 HEMOGLOBIN (BEAKER) (test riuw=142) 11.6 GM/DL 13.7-17.5 HEMATOCRIT (BEAKER) (test spxb=325) 37.3 % 40.1-51.0 MEAN CORPUSCULAR VOLUME (BEAKER) (test hoiz=567) 84.8 fL 79.0-92.2 MEAN CORPUSCULAR HEMOGLOBIN (BEAKER) (test 26.4 pg 25.7-32.2 tbik=648) MEAN CORPUSCULAR HEMOGLOBIN CONC (BEAKER) (test 31.1 GM/DL 32.3-36.5 vvib=410) RED CELL DISTRIBUTION WIDTH (BEAKER) (test 13.2 % 11.6-14.4 quox=354) PLATELET COUNT (BEAKER) (test jbfo=272) 335 K/CU MM 150-450 MEAN PLATELET VOLUME (BEAKER) (test gyya=842) 9.7 fL 9.4-12.4 NUCLEATED RED BLOOD CELLS (BEAKER) (test 0 /100 WBC 0-0 xuoy=773) NEUTROPHILS RELATIVE PERCENT (BEAKER) (test 72 % mmmt=001) LYMPHOCYTES RELATIVE PERCENT (BEAKER) (test 16 % lsfr=942) MONOCYTES RELATIVE PERCENT (BEAKER) (test 9 % ikgh=005) EOSINOPHILS RELATIVE PERCENT (BEAKER) (test 0 % sbfv=849) BASOPHILS RELATIVE PERCENT (BEAKER) (test 1 % dhgr=218) NEUTROPHILS ABSOLUTE COUNT (BEAKER) (test 6.64 K/ L 1.78-5.38 kxaz=005) LYMPHOCYTES ABSOLUTE COUNT (BEAKER) (test 1.44 K/ L 1.32-3.57 gxsz=755) MONOCYTES ABSOLUTE COUNT (BEAKER) (test 0.84 K/ L 0.30-0.82 mzsh=575) EOSINOPHILS ABSOLUTE COUNT (BEAKER) (test 0.02 K/ L 0.04-0.54 spzq=764) BASOPHILS ABSOLUTE COUNT (BEAKER) (test 0.08 K/ L 0.01-0.08 uuhm=375) IMMATURE GRANULOCYTES-RELATIVE PERCENT (BEAKER) 2 % 0-1 (test idyu=1006) (CELLAVISION MANUAL DIFF)2018-03-20 09:52:00 Test Item Value Reference Range Comments TOTAL COUNTED (BEAKER) (test wftk=7254) WBC MORPHOLOGY (BEAKER) (test ouuv=554) Normal PLT MORPHOLOGY (BEAKER) (test gfpc=079) Normal POLYCHROMATOPHILLIC RBCS(BEAKER) (test rspl=892) 1+ few ANISOCYTOSIS (BEAKER) (test daas=366) 1+ few COMPREHENSIVE METABOLIC [id number] 07:57:00 Test Item Value Reference Range Comments TOTAL PROTEIN (BEAKER) 6.3 gm/dL 6.0-8.3 (test pzda=815) ALBUMIN (BEAKER) (test 2.7 g/dL 3.5-5.0 dxqo=4709) ALKALINE PHOSPHATASE 165 U/L 40-150 (BEAKER) (test unbp=967) BILIRUBIN TOTAL (BEAKER) 1.2 mg/dL 0.2-1.2 (test dvhl=824) SODIUM (BEAKER) (test 134 meq/L 136-145 rzio=744) POTASSIUM (BEAKER) (test 3.7 meq/L 3.5-5.1 acxx=915) CHLORIDE (BEAKER) (test 101 meq/L 98-107 iwct=025) CO2 (BEAKER) (test 23 meq/L 22-29 dfmr=148) BLOOD UREA NITROGEN 8 mg/dL 7-21 (BEAKER) (test gxaj=570) CREATININE (BEAKER) (test 0.56 mg/dL 0.57-1.25 vabw=732) GLUCOSE RANDOM (BEAKER) 82 mg/dL 70-105 (test ciad=859) CALCIUM (BEAKER) (test 8.5 mg/dL 8.4-10.2 cvuy=643) AST (SGOT) (BEAKER) (test 177 U/L 5-34 zjkc=294) ALT (SGPT) (BEAKER) (test 118 U/L 6-55 zrgi=864) EGFR (BEAKER) (test 154 mL/min/1.73 sq ESTIMATED GFR IS NOT xbnf=3435) m ACCURATE CREATININE CLEARANCE IN PREDICTING GLOMERULAR FILTRATION RATE. ESTIMATED GFR IS NOT APPLICABLE FOR DIALYSIS PATIENTS. CBC W/PLT COUNT & AUTO [id number] 13:41:00 Test Item Value Reference Range Comments WHITE BLOOD CELL COUNT (BEAKER) (test nmzy=443) 7.6 K/ L 3.5-10.5 RED BLOOD CELL COUNT (BEAKER) (test bfbk=976) 4.45 M/ L 4.63-6.08 HEMOGLOBIN (BEAKER) (test mubt=085) 12.1 GM/DL 13.7-17.5 HEMATOCRIT (BEAKER) (test aqlq=618) 37.8 % 40.1-51.0 MEAN CORPUSCULAR VOLUME (BEAKER) (test knmw=601) 84.9 fL 79.0-92.2 MEAN CORPUSCULAR HEMOGLOBIN (BEAKER) (test 27.2 pg 25.7-32.2 kxcb=954) MEAN CORPUSCULAR HEMOGLOBIN CONC (BEAKER) (test 32.0 GM/DL 32.3-36.5 ycio=308) RED CELL DISTRIBUTION WIDTH (BEAKER) (test 13.1 % 11.6-14.4 kjel=050) PLATELET COUNT (BEAKER) (test jfbk=453) 341 K/CU MM 150-450 MEAN PLATELET VOLUME (BEAKER) (test awtr=009) 9.9 fL 9.4-12.4 NUCLEATED RED BLOOD CELLS (BEAKER) (test 0 /100 WBC 0-0 mozc=472) (CELLAVISION MANUAL DIFF)2018-03-19 13:41:00 Test Item Value Reference Range Comments NEUTROPHILS - REL (CELLAVISION)(BEAKER) (test 83 % wjxc=0749) LYMPHOCYTES - REL (CELLAVISION)(BEAKER) (test 2 % lzvi=6630) MONOCYTES - REL (CELLAVISION)(BEAKER) (test 5 % zpio=7457) BANDS - REL (CELLAVISION)(BEAKER) (test 10 % 0-10 gecb=5607) NEUTROPHILS - ABS (CELLAVISION)(BEAKER) (test 6.31 K/ul 1.78-5.38 hpie=8935) LYMPHOCYTES - ABS (CELLAVISION)(BEAKER) (test 0.15 K/ul 1.32-3.57 slvt=5387) MONOCYTES - ABS (CELLAVISION)(BEAKER) (test 0.38 K/uL 0.30-0.82 wplc=7033) BANDS - ABS (CELLAVISION)(BEAKER) (test 0.76 K/uL 0.00-0.80 ysxf=1963) TOTAL COUNTED (BEAKER) (test bdjj=4508) 100 WBC MORPHOLOGY (BEAKER) (test gmgj=997) Normal LARGE PLT(BEAKER) (test okua=1380) Present POLYCHROMATOPHILLIC RBCS(BEAKER) (test netm=087) 1+ few ANISOCYTOSIS (BEAKER) (test rmfu=040) 2+ moderate MICROCYTES (BEAKER) (test mlgq=455) 1+ few MACROCYTES (BEAKER) (test byqu=960) 2+ moderate POIKILOCYTES (BEAKER) (test cvkn=613) 1+ few SCHISTOCYTES (BEAKER) (test aajr=431) 1+ few OVALOCYTES (BEAKER) (test oggr=273) 1+ few ACANTHOCYTES (BEAKER) (test ourh=910) 1+ few ARTIFACT (CELLAVISION)(BEAKER) (test jojj=1686) Present PLATELET CONCENTRATION (CELLAVISION)(BEAKER) Adequate (test nphk=9919) Received comment: User comments: Slide comments:COMPREHENSIVE METABOLIC [id number] 07:04:00 Test Item Value Reference Range Comments TOTAL PROTEIN (BEAKER) 6.4 gm/dL 6.0-8.3 (test hpqp=770) ALBUMIN (BEAKER) (test 2.7 g/dL 3.5-5.0 rqjv=3529) ALKALINE PHOSPHATASE 177 U/L 40-150 (BEAKER) (test guio=191) BILIRUBIN TOTAL (BEAKER) 1.2 mg/dL 0.2-1.2 (test aynj=307) SODIUM (BEAKER) (test 133 meq/L 136-145 hics=483) POTASSIUM (BEAKER) (test 3.9 meq/L 3.5-5.1 iylq=016) CHLORIDE (BEAKER) (test 99 meq/L 98-107 unel=633) CO2 (BEAKER) (test 22 meq/L 22-29 jlrs=243) BLOOD UREA NITROGEN 9 mg/dL 7-21 (BEAKER) (test wxwo=613) CREATININE (BEAKER) (test 0.56 mg/dL 0.57-1.25 auif=496) GLUCOSE RANDOM (BEAKER) 83 mg/dL 70-105 (test gnqn=299) CALCIUM (BEAKER) (test 8.5 mg/dL 8.4-10.2 ycqz=391) AST (SGOT) (BEAKER) (test 119 U/L 5-34 jzpw=438) ALT (SGPT) (BEAKER) (test 82 U/L 6-55 upaz=225) EGFR (BEAKER) (test 154 mL/min/1.73 sq ESTIMATED GFR IS NOT qgsh=0170) m ACCURATE CREATININE CLEARANCE IN PREDICTING GLOMERULAR FILTRATION RATE. ESTIMATED GFR IS NOT APPLICABLE FOR DIALYSIS PATIENTS. CT, CHEST, WITH [id number] 23:52:00FINAL REPORT HISTORY : pancreatic mass, needs staging [...] and/or kV according to patient size and/or useof iterative reconstructive technique. COMPARISON : None CHEST : The thyroid gland is within normallimits. There is an enlarged subcarinal/periesophageal lymph node [...] cm nodule. ABDOMEN/PELVIS: The visualized spleen, adrenal glands , pancreas, gallbladder, stomach and duodenum are within [...] there is a mass measuring up to 3.4x 2.7 cm just located anterior to the [...] identified in the bilateral femoral heads. The findingsare nonspecific but could represent bone islands. No [...] pleural effusions. 4. Total of 2 subcentimeter right- sided pulmonary nodules. 5. Omental masses/metastatic deposits. There is also a lower pelvis mass anterior to the rectum but could representa peritoneal based metastatic deposit. 6. Small amount of free fluid in the abdomen. 7. Enlarged subcarinal/paraesophageal lymph node as well as an enlarged pericaval lymph node in the abdomen. Signed:Grace Dumont MDReport Verified Date/Time: 2017 23:52:55 Reading Location: [facility] C013W Consult Reading Room CT, [id number] 23:52:00FINAL REPORT HISTORY : pancreatic mass, needs staging [...] and/or kV according to patient size and/or useof iterative reconstructive technique. COMPARISON : None CHEST : The thyroid gland is within normallimits. There is an enlarged subcarinal/periesophageal lymph node [...] cm nodule. ABDOMEN/PELVIS: The visualized spleen, adrenal glands , pancreas, gallbladder, stomach and duodenum are within [...] there is a mass measuring up to 3.4x 2.7 cm just located anterior to the [...] identified in the bilateral femoral heads. The findingsare nonspecific but could represent bone islands. No [...] pleural effusions. 4. Total of 2 subcentimeter right- sided pulmonary nodules. 5. Omental masses/metastatic deposits. There is also a lower pelvis mass anterior to the rectum but could representa peritoneal based metastatic deposit. 6. Small amount of free fluid in the abdomen. 7. Enlarged subcarinal/paraesophageal lymph node as well as an enlarged pericaval lymph node in the abdomen. Signed:Grace Dumont MDReport Verified Date/Time: 2017 23:52:55 Reading Location: [facility] B1 C013W Consult Reading Room COMPREHENSIVE METABOLIC [id number] 18:54:00 Test Item Value Reference Range Comments TOTAL PROTEIN (BEAKER) 6.8 gm/dL 6.0-8.3 (test xzsa=995) ALBUMIN (BEAKER) (test 2.8 g/dL 3.5-5.0 ubyj=4222) ALKALINE PHOSPHATASE 196 U/L 40-150 (BEAKER) (test ioen=782) BILIRUBIN TOTAL (BEAKER) 1.3 mg/dL 0.2-1.2 (test vmzh=991) SODIUM (BEAKER) (test 131 meq/L 136-145 pqsf=325) POTASSIUM (BEAKER) (test 4.3 meq/L 3.5-5.1 mndh=202) CHLORIDE (BEAKER) (test 99 meq/L 98-107 sutm=956) CO2 (BEAKER) (test 22 meq/L 22-29 muyt=040) BLOOD UREA NITROGEN 8 mg/dL 7-21 (BEAKER) (test wvae=261) CREATININE (BEAKER) (test 0.58 mg/dL 0.57-1.25 byog=552) GLUCOSE RANDOM (BEAKER) 98 mg/dL 70-105 (test vhhn=010) CALCIUM (BEAKER) (test 8.6 mg/dL 8.4-10.2 lekl=250) AST (SGOT) (BEAKER) (test 101 U/L 5-34 ijtl=735) ALT (SGPT) (BEAKER) (test 75 U/L 6-55 npgj=613) EGFR (BEAKER) (test 148 mL/min/1.73 sq ESTIMATED GFR IS NOT ytbh=8515) m ACCURATE CREATININE CLEARANCE IN PREDICTING GLOMERULAR FILTRATION RATE. ESTIMATED GFR IS NOT APPLICABLE FOR DIALYSIS PATIENTS. CREATININE, RANDOM [id number] 18:53:00 Test Item Value Reference Range Comments CREATININE URINE (BEAKER) (test clmm=662) 27.7 mg/dL Reference Range: No NormalsSODIUM, RANDOM [id number] 18:53:00 Test Item Value Reference Range Comments SODIUM URINE (BEAKER) (test jrqg=527) 132 meq/L Reference Range: No NormalsOSMOLALITY, [id number] 18:42:00 Test Item Value Reference Range Comments OSMOLALITY URINE (BEAKER) (test qnkf=235) 423 mOsm/kg 40-1,400 FINE NEEDLE ASPIRATE (FNA) [id number] 17:00:00 Test Item Value Reference Range Comments CYTOLOGY RESULT POINTER (BEAKER) (test See Separate Report ymyo=1167) FINE NEEDLE ASPIRATE (FNA) [id number] 17:00:00 Test Item Value Reference Range Comments CYTOLOGY RESULT POINTER (BEAKER) (test See Separate Report bhqe=5526) FINE NEEDLE ASPIRATE (FNA) [id number] 17:00:00 Test Item Value Reference Range Comments CYTOLOGY RESULT POINTER (BEAKER) (test See Separate Report ktio=0490) CBC W/PLT COUNT & AUTO [id number] 05:19:00 Test Item Value Reference Range Comments WHITE BLOOD CELL COUNT (BEAKER) (test hddh=453) 6.6 K/ L 3.5-10.5 RED BLOOD CELL COUNT (BEAKER) (test hcoa=149) 4.43 M/ L 4.63-6.08 HEMOGLOBIN (BEAKER) (test mmze=502) 11.8 GM/DL 13.7-17.5 HEMATOCRIT (BEAKER) (test wwob=920) 36.7 % 40.1-51.0 MEAN CORPUSCULAR VOLUME (BEAKER) (test vgty=592) 82.8 fL 79.0-92.2 MEAN CORPUSCULAR HEMOGLOBIN (BEAKER) (test 26.6 pg 25.7-32.2 bjph=928) MEAN CORPUSCULAR HEMOGLOBIN CONC (BEAKER) (test 32.2 GM/DL 32.3-36.5 mcmv=688) RED CELL DISTRIBUTION WIDTH (BEAKER) (test 12.8 % 11.6-14.4 tvrr=110) PLATELET COUNT (BEAKER) (test szoe=191) 319 K/CU MM 150-450 MEAN PLATELET VOLUME (BEAKER) (test deoi=046) 9.7 fL 9.4-12.4 NUCLEATED RED BLOOD CELLS (BEAKER) (test 0 /100 WBC 0-0 npxz=233) NEUTROPHILS RELATIVE PERCENT (BEAKER) (test 77 % cqer=117) LYMPHOCYTES RELATIVE PERCENT (BEAKER) (test 11 % oovj=921) MONOCYTES RELATIVE PERCENT (BEAKER) (test 10 % hnhh=724) EOSINOPHILS RELATIVE PERCENT (BEAKER) (test 1 % vobw=466) BASOPHILS RELATIVE PERCENT (BEAKER) (test 1 % ptns=629) NEUTROPHILS ABSOLUTE COUNT (BEAKER) (test 5.08 K/ L 1.78-5.38 twco=015) LYMPHOCYTES ABSOLUTE COUNT (BEAKER) (test 0.71 K/ L 1.32-3.57 kpyq=590) MONOCYTES ABSOLUTE COUNT (BEAKER) (test 0.67 K/ L 0.30-0.82 pkvd=554) EOSINOPHILS ABSOLUTE COUNT (BEAKER) (test 0.03 K/ L 0.04-0.54 ujpi=429) BASOPHILS ABSOLUTE COUNT (BEAKER) (test 0.03 K/ L 0.01-0.08 edre=095) IMMATURE GRANULOCYTES-RELATIVE PERCENT (BEAKER) 1 % 0-1 (test vvgg=5229) COMPREHENSIVE METABOLIC [id number] 20:45:00 Test Item Value Reference Range Comments TOTAL PROTEIN (BEAKER) 6.8 gm/dL 6.0-8.3 (test jmkw=752) ALBUMIN (BEAKER) (test 2.9 g/dL 3.5-5.0 pcmz=8174) ALKALINE PHOSPHATASE 199 U/L 40-150 (BEAKER) (test ahsn=641) BILIRUBIN TOTAL (BEAKER) 1.3 mg/dL 0.2-1.2 (test zcvl=970) SODIUM (BEAKER) (test 130 meq/L 136-145 fwpe=482) POTASSIUM (BEAKER) (test 3.8 meq/L 3.5-5.1 jlst=226) CHLORIDE (BEAKER) (test 95 meq/L 98-107 qlqn=909) CO2 (BEAKER) (test 23 meq/L 22-29 nsqs=850) BLOOD UREA NITROGEN 6 mg/dL 7-21 (BEAKER) (test prnj=055) CREATININE (BEAKER) (test 0.56 mg/dL 0.57-1.25 hhhh=164) GLUCOSE RANDOM (BEAKER) 98 mg/dL 70-105 (test kzte=939) CALCIUM (BEAKER) (test 8.5 mg/dL 8.4-10.2 qxcd=631) AST (SGOT) (BEAKER) (test 86 U/L 5-34 zjcf=556) ALT (SGPT) (BEAKER) (test 66 U/L 6-55 doxh=916) EGFR (BEAKER) (test mL/min/1.73 sq m INSUFFICIENT CLINICAL DATA hsfl=4063) TO CALCULATE ESTIMATED GFR. [id number] 20:33:00 Test Item Value Reference Range Comments LIPASE (BEAKER) (test yugj=049) 143 U/L 8-78 PROTHROMBIN [id number] 20:26:00 Test Item Value Reference Range Comments PROTIME (BEAKER) (test xiwg=332) 16.5 seconds 11.7-14.7 INR (BEAKER) (test ewao=766) 1.3 <=5.9 RECOMMENDED COUMADIN/WARFARIN INR THERAPY RANGESSTANDARD DOSE: 2.0 - 3.0 Includes: PROPHYLAXIS forvenous thrombosis, systemic embolization; TREATMENT for venous thrombosis and/or pulmonary embolus.HIGH RISK: Target INR is 2.5-3.5 for patients with mechanical heart valves.CBC W/PLT COUNT & AUTO [id number] 20:13:00 Test Item Value Reference Range Comments WHITE BLOOD CELL COUNT (BEAKER) (test lpnd=747) 7.5 K/ L 3.5-10.5 RED BLOOD CELL COUNT (BEAKER) (test ulyc=191) 4.48 M/ L 4.63-6.08 HEMOGLOBIN (BEAKER) (test lwwo=068) 12.4 GM/DL 13.7-17.5 HEMATOCRIT (BEAKER) (test bxkr=386) 38.1 % 40.1-51.0 MEAN CORPUSCULAR VOLUME (BEAKER) (test anlf=005) 85.0 fL 79.0-92.2 MEAN CORPUSCULAR HEMOGLOBIN (BEAKER) (test 27.7 pg 25.7-32.2 yxhg=469) MEAN CORPUSCULAR HEMOGLOBIN CONC (BEAKER) (test 32.5 GM/DL 32.3-36.5 ujky=333) RED CELL DISTRIBUTION WIDTH (BEAKER) (test 12.7 % 11.6-14.4 anau=437) PLATELET COUNT (BEAKER) (test pnug=038) 323 K/CU MM 150-450 MEAN PLATELET VOLUME (BEAKER) (test zeff=101) 9.8 fL 9.4-12.4 NUCLEATED RED BLOOD CELLS (BEAKER) (test 0 /100 WBC 0-0 atdp=553) NEUTROPHILS RELATIVE PERCENT (BEAKER) (test 83 % crax=848) LYMPHOCYTES RELATIVE PERCENT (BEAKER) (test 8 % gxdz=310) MONOCYTES RELATIVE PERCENT (BEAKER) (test 8 % dlmf=670) EOSINOPHILS RELATIVE PERCENT (BEAKER) (test 0 % hgjr=480) BASOPHILS RELATIVE PERCENT (BEAKER) (test 0 % aqoe=837) NEUTROPHILS ABSOLUTE COUNT (BEAKER) (test 6.18 K/ L 1.78-5.38 essn=527) LYMPHOCYTES ABSOLUTE COUNT (BEAKER) (test 0.61 K/ L 1.32-3.57 umkr=164) MONOCYTES ABSOLUTE COUNT (BEAKER) (test 0.56 K/ L 0.30-0.82 hvnd=103) EOSINOPHILS ABSOLUTE COUNT (BEAKER) (test 0.02 K/ L 0.04-0.54 rhsx=612) BASOPHILS ABSOLUTE COUNT (BEAKER) (test 0.03 K/ L 0.01-0.08 ezlt=619) IMMATURE GRANULOCYTES-RELATIVE PERCENT (BEAKER) 1 % 0-1 (test rxbt=8148)
[2018-03-29] MEDS ORDERED: FENTANYL CITR 100 MCG/2 ML ONE (15:20)
[2018-03-29] MEDS ORDERED: NA CHLORIDE 0.9% 1,000 ML ONE (15:21)
[2018-03-29] MEDS ORDERED: ONDANSETRON 4 MG/2 ML VIAL ONE (15:21)
[2018-03-29] MEDS ORDERED: PANTOPRAZOLE 40 MG INJ ONE (15:21)
[2018-03-29 15:38] LABS: Protime INR 1.24
[2018-03-29 15:42] LABS: Absolute Lymphocytes (CBC) 0.2 K/uL (0.7-4.9); Absolute Monocytes 0.1 K/uL (0.1-1.3); Absolute Neutrophil 6.5 K/uL (1.8-8.0); Basophils % 0.4 % (0-1.3); Eosinophils % 0.1 % (0-4.4); Hematocrit 35.2 % (39.6-49.0); Lymphocytes % 3.5 % (15.3-44.8); MCV 84.4 fL (80-100); Monocytes % 1.5 % (3.3-12.3); RBC Red Blood Cell Count 4.17 M/uL (4.33-5.43)
[2018-03-29 15:56] LABS: ALT/SGPT 126 U/L (12-78); AST/SGOT 164 U/L (15-37); Albumin 2.4 g/dL (3.4-5.0); Alkaline Phosphatase 433 U/L (45-117); BUN Blood Urea Nitrogen 16 mg/dL (7-18); Bicarbonate 32 mmol/L (21-32); Bilirubin Direct 3.6 mg/dL (0-0.2); Bilirubin Total 4.4 mg/dL (0.2-1.0); Glucose Level 126 mg/dL (74-106); Lipase 2772 U/L (73-393); Magnesium 2.1 mg/dL (1.8-2.4); NT PRO-BNP 215 pg/mL (<125); Potassium 4.2 mmol/L (3.5-5.1); Sodium Level 133 mmol/L (136-145); Troponin (Emerg Dept Use Only) < 0.02 ng/mL (0.0-0.045)
[2018-03-29 16:24] LABS: Platelet Estimate ADEQ; Urine White Blood Cell Casts OK
[2018-03-29 16:25] LABS: Blood Morphology Comment NOT SEEN (NOT SEEN)
[2018-03-29] MEDS ORDERED: Meropenem 1 GM/100 ML BAG ONE ×2 (16:25→16:33)
--- NOTE | 2018-03-29 16:26 | RAD REPORT ---
EXAM DESCRIPTION: Charlene Single View03/29/2018 3:52 pm CLINICAL HISTORY: Abdominal pain COMPARISON: 2010 FINDINGS: The lungs appear clear of acute infiltrate. The heart is normal size IMPRESSION: No acute abnormalities displayed
--- NOTE | 2018-03-29 16:46 | EDPHYS ---
Physician Documentation [facility] Name: Reji Pina Age: 52 yrs Sex: Male : 1965 Arrival Date: 03/29/2018 Time: 14:48 Bed 5 Private MD: John Raygoza E ED Physician Nii Tavera HPI: 03/29 15:09 This 52 yrs old Male presents to ER via Wheelchair with complaints of Abnormal sabrina Lab Results. 15:09 The patient presents with abdominal pain in the epigastric area, in the upper abdomen, sabrina abdominal distention in the upper abdomen, in the lower abdomen. Onset: The symptoms/episode began/occurred 5 day(s) ago. stage 4 pancreatic cancer. Onset: The symptoms/episode began/occurred 3 day(s) ago. The symptoms radiate to Associated signs and symptoms: none. Modifying factors: The symptoms are alleviated by nothing, the symptoms are aggravated by movement, pressure. Severity of pain: At its worst the pain was moderate in the emergency department the pain is unchanged. Historical: - Allergies: 15:03 NKDA; ph - Home Meds: 18:31 Lactulose Oral [Active]; Protonix Oral [Active]; Tramadol Oral [Active]; rv - PMHx: 15:03 Liver Mass; pancreatic cancer; ph - PSHx: 15:03 left hand surgery; ph - Immunization history:: Adult Immunizations not immunized. - Social history:: Smoking status: Patient/guardian denies using tobacco, Patient/guardian denies using alcohol, street drugs. - Family history:: not pertinent. - Ebola Screening: : Patient negative for fever greater than or equal to 101.5 degrees Fahrenheit, and additional compatible Ebola Virus Disease symptoms Patient denies exposure to infectious person Patient denies travel to an Ebola-affected area in the 21 days before illness onset. ROS: 15:09 Constitutional: Negative for fever, chills, and weight loss, Eyes: Negative for injury, sabrina pain, redness, and discharge, ENT: Negative for injury, pain, and discharge, Neck: Negative for injury, pain, and swelling, Cardiovascular: Negative for chest pain, palpitations, and edema, Respiratory: Negative for shortness of breath, cough, wheezing, and pleuritic chest pain, Back: Negative for injury and pain, : Negative for injury, bleeding, discharge, and swelling, MS/Extremity: Negative for injury and deformity, Skin: Negative for injury, rash, and discoloration, Neuro: Negative for headache, weakness, numbness, tingling, and seizure, Psych: Negative for depression, anxiety, suicide ideation, homicidal ideation, and hallucinations, Allergy/Immunology: Negative for hives, rash, and allergies, Endocrine: Negative for neck swelling, polydipsia, polyuria, polyphagia, and marked weight changes, Hematologic/Lymphatic: Negative for swollen nodes, abnormal bleeding, and unusual bruising. 15:09 Abdomen/GI: Positive for abdominal pain, of the epigastric area, right upper quadrant and left upper quadrant. Exam: 15:09 Head/Face: Normocephalic, atraumatic. Eyes: Pupils equal round and reactive to light, sabrina extra-ocular motions intact. Lids and lashes normal. Conjunctiva and sclera are non-icteric and not injected. Cornea within normal limits. Periorbital areas with no swelling, redness, or edema. ENT: Nares patent. No nasal discharge, no septal abnormalities noted. Tympanic membranes are normal and external auditory canals are clear. Oropharynx with no redness, swelling, or masses, exudates, or evidence of obstruction, uvula midline. Mucous membranes moist. Neck: Trachea midline, no thyromegaly or masses palpated, and no cervical lymphadenopathy. Supple, full range of motion without nuchal rigidity, or vertebral point tenderness. No Meningismus. Chest/axilla: Normal chest wall appearance and motion. Nontender with no deformity. No lesions are appreciated. Respiratory: Lungs have equal breath sounds bilaterally, clear to auscultation and percussion. No rales, rhonchi or wheezes noted. No increased work of breathing, no retractions or nasal flaring. Back: No spinal tenderness. No costovertebral tenderness. Full range of motion. Male : Normal genitalia with no discharge or lesions. MS/ Extremity: Pulses equal, no cyanosis. Neurovascular intact. Full, normal range of motion. Neuro: Awake and alert, GCS 15, oriented to person, place, time, and situation. Cranial nerves II-XII grossly intact. Motor strength 5/5 in all extremities. Sensory grossly intact. Cerebellar exam normal. Normal gait. Psych: Awake, alert, with orientation to person, place and time. Behavior, mood, and affect are within normal limits. 15:09 Constitutional: The patient appears in obvious distress, mildly distressed, moderately distressed. 15:09 Abdomen/GI: Inspection: distension, that is moderate, Bowel sounds: normal, Palpation: moderate abdominal tenderness, in the epigastric area, right upper quadrant and left upper quadrant, Liver: tenderness, that is mild, Hernia: not appreciated. Vital Signs: 15:03 BP 122 / 95; Pulse 100; Resp 22; Temp 97.6; Pulse Ox 97% on R/A; Weight 54.43 kg; Pain ph 8/10; 16:32 BP 123 / 91; Pulse 109; Resp 22; Pulse Ox 97% ; sv 17:00 BP 106 / 72; Pulse 101; Resp 18; Pulse Ox 98% on R/A; rv 17:30 BP 102 / 73; Pulse 100; Resp 18; Pulse Ox 98% on R/A; rv 18:00 BP 113 / 88; Pulse 101; Resp 17; Pulse Ox 99% on R/A; rv MDM: 14:[address] [facility] 15:11 Data reviewed: vital signs, nurses notes, lab test result(s), EKG, radiologic studies, [facility] MRI, plain films. 03/29 15:08 Order name: Basic Metabolic Panel; Complete Time: 16:42 [facility] 03/29 15:08 Order name: CBC with Diff; Complete Time: 16:42 [facility] 03/29 15:08 Order name: LFT's; Complete Time: 16:42 [facility] 03/29 15:08 Order name: Magnesium; Complete Time: 16:42 [facility] 03/29 15:08 Order name: NT PRO-BNP; Complete Time: 16:42 [facility] 03/29 15:08 Order name: PT-INR; Complete Time: 16:42 [facility] 03/29 15:08 Order name: Troponin (emerg Dept Use Only); Complete Time: 16:42 [facility] 03/29 15:08 Order name: XRAY Chest (1 view); Complete Time: 16:42 [facility] 03/29 15:08 Order name: Lipase; Complete Time: 16:42 [facility] 03/29 15:08 Order name: Type And Screen; Complete Time: 16:42 [facility] 03/29 15:54 Order name: Cholangiogram; Complete Time: 17:45 EDMS 03/29 16:25 Order name: CBC Smear Scan [facility] 03/29 17:58 Order name: Urine Dipstick--Ancillary (enter results) 03/29 17:58 Order name: Urine Dipstick-Ancillary [facility] 03/29 15:08 Order name: EKG; Complete Time: 15:54 [facility] 03/29 15:08 Order name: Cardiac monitoring; Complete Time: 15:29 [facility] 03/29 15:08 Order name: EKG - Nurse/Tech; Complete Time: 15:28 [facility] 03/29 15:08 Order name: IV Saline Lock; Complete Time: 15:28 [facility] 03/29 15:08 Order name: Labs collected and sent; Complete Time: 15:29 [facility] 03/29 15:08 Order name: O2 Per Protocol; Complete Time: 15:29 [facility] 03/29 15:08 Order name: O2 Sat Monitoring; Complete Time: 15:29 [facility] Administered Medications: 15:10 Drug: NS 0.9% 1000 ml Route: IV; Rate: 125 ml/hr; Site: left antecubital; rv 19:19 Follow up: IV Status: Infusion continued upon transfer rv 15:15 Drug: ProTONIX 40 mg Route: IVP; Site: left antecubital; rv 19:19 Follow up: Response: No adverse reaction rv 15:15 Drug: fentaNYL (PF) 25 mcg Route: IVP; Site: left antecubital; rv 19:18 Follow up: Response: No adverse reaction rv 15:15 Drug: Zofran 4 mg Route: IVP; Site: left antecubital; rv 19:16 Follow up: Response: No adverse reaction rv 16:29 Drug: Meropenem 1 grams Route: IV; Rate: per protocol; Site: left antecubital; rv 18:06 Follow up: IV Status: Completed infusion rv 16:32 Drug: fentaNYL (PF) 25 mcg Route: IVP; Site: left antecubital; rv 19:16 Follow up: Response: No adverse reaction rv 19:00 Drug: fentaNYL (PF) 50 mcg Route: IVP; Site: left antecubital; rv 19:18 Follow up: Response: Medication administered at discharge. rv Disposition: 03/29/18 16:[address] [facility]. Diagnosis are Abdominal tenderness, Other acute pancreatitis - stage 4 pancreatic obtruction. - Reason for transfer: Higher level of care. - Accepting physician is to [facility]. - Condition is Serious. - Problem is new. - Symptoms are unchanged. Signatures: Dispatcher [employer] EDZara Stewart RN RN aj1 Nii Tavera MD MD cha Krenek, Amber RN RN ak1 Naye Plunkett, RN RN Sergei Gonzalez, RN RN rv Corrections: (The following items were deleted from the chart) 19:12 16:44 03/29/2018 16:[address] [facility]. Diagnosis is aj1 Abdominal tenderness; Other acute pancreatitis - stage 4 pancreatic obtruction. Reason for transfer: Higher level of care. Accepting physician is to [facility]. Condition is Serious. Problem is new. Symptoms are unchanged. [facility] 19:18 19:12 03/29/2018 16:[address] [facility]. Diagnosis is ak1 Abdominal tenderness; Other acute pancreatitis - stage 4 pancreatic obtruction. Reason for transfer: Higher level of care. Accepting physician is to [facility]. Condition is Serious. Problem is new. Symptoms are unchanged. aj1
--- NOTE | 2018-03-29 16:46 | ER ---
Nurse's Notes [facility] Name: Reji Zelaya Age: 52 yrs Sex: Male : 1965 Arrival Date: 03/29/2018 Time: 14:48 Bed 5 Private MD: John Raygoza E Diagnosis: Abdominal tenderness;Other acute pancreatitis-stage 4 pancreatic obtruction Presentation: 03/29 14:59 Risk Assessment: Do you want to hurt yourself or someone else? Patient reports no rv desire to harm self or others. Initial Sepsis Screen: Does the patient meet any 2 criteria? No. Patient's initial sepsis screen is negative. Does the patient have a suspected source of infection?. Initial Sepsis Screen: Does the patient have a suspected source of infection? No. Patient's initial sepsis screen is negative. Care prior to arrival: None. 15:01 Presenting complaint: states: Pt currently being treated at [facility] for ph pancreatic cancer, was seen today and had blood drawn, sent to ED for elevated liver enzymes, pt reports lower abdominal pain and bloating. Transition of care: patient was not received from another setting of care. Onset of symptoms was March 29, 2018. 15:01 Method Of Arrival: Wheelchair ph 15:01 Acuity: TY 3 ph Historical: - Allergies: 15:03 NKDA; ph - Home Meds: 18:31 Lactulose Oral [Active]; Protonix Oral [Active]; Tramadol Oral [Active]; rv - PMHx: 15:03 Liver Mass; pancreatic cancer; ph - PSHx: 15:03 left hand surgery; ph - Immunization history:: Adult Immunizations not immunized. - Social history:: Smoking status: Patient/guardian denies using tobacco, Patient/guardian denies using alcohol, street drugs. - Family history:: not pertinent. - Ebola Screening: : Patient negative for fever greater than or equal to 101.5 degrees Fahrenheit, and additional compatible Ebola Virus Disease symptoms Patient denies exposure to infectious person Patient denies travel to an Ebola-affected area in the 21 days before illness onset. Screenin:59 Abuse screen: Denies threats or abuse. Denies injuries from another. Nutritional rv screening: No deficits noted. Tuberculosis screening: No symptoms or risk factors identified. Fall Risk None identified. Assessment: 14:58 General: Appears in no apparent distress. comfortable, Behavior is calm, cooperative. rv Pain: Complains of pain in abdomen. Neuro: Level of Consciousness is awake, alert, obeys commands, Oriented to person, place, time, situation. Cardiovascular: Capillary refill < 3 seconds. Respiratory: Airway is patent. GI: No signs and/or symptoms were reported involving the gastrointestinal system. : No signs and/or symptoms were reported regarding the genitourinary system. EENT: No signs and/or symptoms were reported regarding the EENT system. Derm: Skin is intact. Musculoskeletal: No signs and/or symptoms reported regarding the musculoskeletal system. 15:33 Reassessment: SISTER LEFT CONTACT NUMBER [id number] MACARIO ZELAYA. rv 16:34 Reassessment: Patient appears in no apparent distress at this time. PATIENT TAKEN TO rv MRI. 17:30 Reassessment: Patient appears in no apparent distress at this time. PATIENT IS AWAKE. rv 18:29 Reassessment: Patient appears in no apparent distress at this time. CALLED REPORT TO rv FANI ALCARAZ OF [facility]. AWAITING TRANSPORT. Vital Signs: 15:03 BP 122 / 95; Pulse 100; Resp 22; Temp 97.6; Pulse Ox 97% on R/A; Weight 54.43 kg; Pain ph 8/10; 16:32 BP 123 / 91; Pulse 109; Resp 22; Pulse Ox 97% ; sv 17:00 BP 106 / 72; Pulse 101; Resp 18; Pulse Ox 98% on R/A; rv 17:30 BP 102 / 73; Pulse 100; Resp 18; Pulse Ox 98% on R/A; rv 18:00 BP 113 / 88; Pulse 101; Resp 17; Pulse Ox 99% on R/A; rv ED Course: 14:48 Patient arrived in ED. rg4 14:48 John Raygoza MD is Private Physician. rg4 14:53 Nii Tavera MD is Attending Physician. sabrina 15:00 Patient has correct armband on for positive identification. Call light in reach. Side rv rails up X 1. Adult w/ patient. Pulse ox on. NIBP on. 15:02 Triage completed. ph 15:04 Arm band placed on Patient placed in an exam room, on pulse oximetry. ph 15:29 Inserted saline lock: 20 gauge in left antecubital area, using aseptic technique. Blood rv collected. Missed attempt(s): 20 gauge in right antecubital area. 15:56 XRAY Chest (1 view) In Process Unspecified. EDMS 16:30 Patient moved to MRI via wheelchair. ka 17:14 Cholangiogram In Process Unspecified. EDMS 17:14 MRI completed. Patient tolerated well. Patient moved back from [facility]. ka 19:15 No provider procedures requiring assistance completed. Patient transferred, IV remains rv in place. intact. Administered Medications: 15:10 Drug: NS 0.9% 1000 ml Route: IV; Rate: 125 ml/hr; Site: left antecubital; rv 19:19 Follow up: IV Status: Infusion continued upon transfer rv 15:15 Drug: ProTONIX 40 mg Route: IVP; Site: left antecubital; rv 19:19 Follow up: Response: No adverse reaction rv 15:15 Drug: fentaNYL (PF) 25 mcg Route: IVP; Site: left antecubital; rv 19:18 Follow up: Response: No adverse reaction rv 15:15 Drug: Zofran 4 mg Route: IVP; Site: left antecubital; rv 19:16 Follow up: Response: No adverse reaction rv 16:29 Drug: Meropenem 1 grams Route: IV; Rate: per protocol; Site: left antecubital; rv 18:06 Follow up: IV Status: Completed infusion rv 16:32 Drug: fentaNYL (PF) 25 mcg Route: IVP; Site: left antecubital; rv 19:16 Follow up: Response: No adverse reaction rv 19:00 Drug: fentaNYL (PF) 50 mcg Route: IVP; Site: left antecubital; rv 19:18 Follow up: Response: Medication administered at discharge. rv Outcome: 16:44 ER care complete, transfer ordered by . sabrina 19:12 Patient left the ED. aj1 19:15 Transferred by ground EMS to [facility], Transfer form completed. rv 19:15 Condition: stable 19:15 Instructed on the need for transfer. 19:18 Patient left the ED. ak1 Signatures: Dispatcher [employer] EDMS Zara Rosen RN RN aj1 Fani Torres RN RN sv Anderson, Corey, MD MD cha Krenek, Amber, RN RN ak1 Naye Plunkett RN RN ph Aguilera, Katelyn ka Garcia, Rubi rg4 Sergei Kilgore, RN RN rv
--- NOTE | 2018-03-29 17:29 | RAD REPORT ---
EXAM DESCRIPTION: MRI - Cholangiogram - 03/29/2018 5:14 pm CLINICAL HISTORY: r/o obstruction from pancreatic cancer Abdominal pain COMPARISON: Cholangiogram dated 03/14/2018; Stone Protocol dated 03/12/2018; Abdomen W/Wo Contrast d ated 03/01/2018 FINDINGS: Three-dimensional MRCP was performed using maximum intensity projection reconstruction on the same work station. No evidence of significant intra or extrahepatic biliary tree dilatation. Gallbladder is partially co ntracted. Mild ascites is present. Large irregular tumor mass is again seen involving the pancreatic body with multiple hepatic metastases identified. Patient has a known history of metastatic pancreatic neoplasi a. IMPRESSION: No significant biliary system dilatation seen.
[2018-03-29 18:58] LABS: Urine Blood NEGATIVE (NEG); Urine Glucose NEGATIVE (NEG); Urine Protein 1+ (NEG); Urine Specific Gravity 1.025 (1.005-1.030); Urine pH 5.5 (5.0-7.0)
[2018-03-29 19:18] VITALS: TEMP 97.6
[2018-03-29 19:23] VITALS: BP 113/88; O2SAT 99
--- NOTE | 2018-03-30 06:05 | EKG ---
Test Date: 2018-03-29 Test Time: 15:15:40 Screen Vent Binder: HOLLY MEASUREMENT RESULTS: Intervals: Rate: 103 CA: 130 QRSD: 82 QT: 364 QTc: 476 [place]: P: 36 CA: 130 QRS: 76 T: 53 INTERPRETIVE STATEMENTS: Sinus tachycardia Otherwise normal ECG Compared to ECG 11/20/2010 04:33:36 Sinus rhythm no longer present Left ventricular hypertrophy no longer present Prolonged QT interval no longer present Electronically Signed On 03-30-18 06:04:19 [employer] SUPERVIS[employer] by Alan Aldridge
== END 2018-03-29 19:18 | disposition short-term general hospital (02) ==
LOC: ER 14:47
DX: K85.80 Other acute pancreatitis without necrosis or infection (principal); C25.9 Malignant neoplasm of pancreas, unspecified; R00.0 Tachycardia, unspecified
CPT/HCPCS: 36415; 71045; 74181; 80048; 80076; 81003; 83690; 83735; 83880; 84484; 85025; 85610; 86850; 86900; 86901; 93005; 96361; 96365; 96366; 96375; 99285; C9113; J2185 ×2; J2405; J3010; J7030